=== PATIENT | female | born 1990 | race Caucasian/White ===

== ENCOUNTER → 2018-09-30 12:42 | Outpatient (CLI) | payer OTHER, SELFPAY ==
[2017-06-14 10:12] VITALS: BMI 26.0
== END ==
PROVIDERS: Family Provider Internal Medicine; PCP Internal Medicine; Referring Provider Obstetrics & Gynecology Maternal & Fetal Medicine; Visit Provider Obstetrics & Gynecology Maternal & Fetal Medicine
DX: Z36.0 Encounter for antenatal screening for chromosomal anomalies (principal); Z82.79 Family history of other congenital malformations, deformations and chromosomal abnormalities
CPT/HCPCS: 36415

== ENCOUNTER → 2018-12-16 14:02 | Outpatient (CLI) | payer OTHER, SELFPAY ==
[2018-12-16 15:47] LABS: Hematocrit 34.6 % (37-47); Hemoglobin 11.2 g/dl (12.0-15.0); Mean Corp Hgb Conc 32.4 g/gl (32-36); Mean Corpuscular Hgb 30.9 pg (27.0-32.0); Mean Corpuscular Volume 95.6 fL (81-99); Mean Platelet Vol. 10.2 fl (6.2-12.0); Platelet Count 260 K/mm3 (150-450); RBC Distribution Width CV 14.1 % (11.6-14.6); RBC Distribution Width SD 46.1 fl (35.1-43.9); Red Blood Count 3.62 M/mm3 (4.2-5.4); White Blood Count 8.9 K/mm3 (4.4-11.0)
[2018-12-16 15:52] LABS: Scan Indicated on CBC? Y/N NO
[2018-12-16 15:56] LABS: Protein, Urine (Random) 10.5 mg/dL (<11.9)
[2018-12-16 16:09] LABS: ALB/GLOB Ratio 0.8 RATIO (0.9-2.4); AST(SGOT) 14 U/L (15-37); Alanine Aminotransfer ALT/SGPT 21 U/L (13-56); Albumin, Serum 2.8 g/dL (3.2-5.0); Alkaline Phosphatase 56 U/L (45-117); Anion Gap 4 (5-15); BUN 10 mg/dL (7-18); Chloride 109 mmol/L (98-107); Creatinine, Serum 0.71 mg/dL (0.55-1.02); EST Glomerular Filtration Rate 102 mL/min (>60); Est Glom Filt Rate - Afr Amer 123 mL/min (>60); Globulin 3.5 g/dL (2.2-4.2); Glucose 102 mg/dL (74-106); Glucose Challenge Gest 1H 50g 102 mg/dL (70-140); Potassium 3.5 mmol/L (3.5-5.1); Protein, Total 6.3 g/dL (6.4-8.2); Sodium Level 138 mmol/L (136-145)
== END ==
PROVIDERS: Family Provider Internal Medicine; PCP Internal Medicine
DX: O30.033 Twin pregnancy, monochorionic/diamniotic, third trimester (principal)
CPT/HCPCS: 36415; 80053; 82570; 82950; 84156; 85027

== ENCOUNTER → 2019-02-11 | Outpatient (CLI) | payer OTHER, SELFPAY ==
[2017-06-14 10:12] VITALS: BMI 26.0
[2019-02-11 14:14] LABS: Hematocrit 31.7 % (37-47); Hemoglobin 10.4 g/dl (12.0-15.0); Mean Corp Hgb Conc 32.8 g/gl (32-36); Mean Corpuscular Hgb 29.2 pg (27.0-32.0); Mean Platelet Vol. 9.8 fl (6.2-12.0); Platelet Count 241 K/mm3 (150-450); RBC Distribution Width CV 13.6 % (11.6-14.6); RBC Distribution Width SD 44.3 fl (35.1-43.9); Red Blood Count 3.56 M/mm3 (4.2-5.4); White Blood Count 8.4 K/mm3 (4.4-11.0)
[2019-02-11 14:15] LABS: Scan Indicated on CBC? Y/N NO
[2019-02-11 14:25] LABS: Protein, Urine (Random) 13.5 mg/dL (<11.9)
[2019-02-11 14:52] LABS: ALB/GLOB Ratio 0.7 RATIO (0.9-2.4); AST(SGOT) 25 U/L (15-37); Alanine Aminotransfer ALT/SGPT 42 U/L (13-56); Albumin, Serum 2.6 g/dL (3.2-5.0); Alkaline Phosphatase 104 U/L (45-117); Anion Gap 9 (5-15); BUN 9 mg/dL (7-18); BUN/Creat Ratio 13.7 RATIO (10-20); Calcium,Total 8.4 mg/dL (8.5-10.1); Chloride 106 mmol/L (98-107); Creatinine, Serum 0.66 mg/dL (0.55-1.02); EST Glomerular Filtration Rate 112 mL/min (>60); Est Glom Filt Rate - Afr Amer 135 mL/min (>60); Globulin 3.8 g/dL (2.2-4.2); Glucose 107 mg/dL (74-106); Potassium 3.7 mmol/L (3.5-5.1); Protein, Total 6.4 g/dL (6.4-8.2); Sodium Level 141 mmol/L (136-145)
== END | disposition home or self-care (01) ==
LOC: LAB 13:53
PROVIDERS: Family Provider Internal Medicine; PCP Internal Medicine
DX: O26.893 Other specified pregnancy related conditions, third trimester (principal); R12 Heartburn; Z3A.00 Weeks of gestation of pregnancy not specified
CPT/HCPCS: 36415; 80053; 82570; 84156; 85027

== ENCOUNTER 2019-02-14 16:15 | Outpatient (CLI) | payer OTHER, SELFPAY ==
[2017-06-14 10:12] VITALS: BMI 26.0
[2019-02-14 16:38] VITALS: BMI 28.7
[2019-02-14 17:45] LABS: Hematocrit 30.6 % (37-47); Mean Corp Hgb Conc 32.7 g/gl (32-36); Mean Corpuscular Hgb 28.7 pg (27.0-32.0); Mean Corpuscular Volume 87.9 fL (81-99); Mean Platelet Vol. 10.5 fl (6.2-12.0); Platelet Count 264 K/mm3 (150-450); RBC Distribution Width CV 13.7 % (11.6-14.6); RBC Distribution Width SD 43.7 fl (35.1-43.9); Red Blood Count 3.48 M/mm3 (4.2-5.4); White Blood Count 7.7 K/mm3 (4.4-11.0)
[2019-02-14 17:50] LABS: Protein, Urine (Random) 10.9 mg/dL (<11.9); Protein:Creat Ratio 214 mg/g CRE (0-200); Prothrombin Time (Protime)PT. 12.7 SECONDS (11.7-14.9)
[2019-02-14 17:51] LABS: Partial Thromboplast Time 26.7 Seconds (24.1-36.2)
[2019-02-14 17:53] LABS: Scan Indicated on CBC? Y/N NO
--- NOTE | 2019-02-14 17:58 | OB.TRI.NOTE ---
History of Present Illness Date of Service: 02/14/19 Was patient seen by the physician?: Yes Reason For Visit: R/O PREECLAMPSIA Date of Service: 02/14/19 Final RICK: 04/02/19 Gestational age: 33 Weeks and 2 Days History of Present Illness: 28-year-old 2 para 1 female at 33-2/7 weeks with dichorionic diamniotic twin gestation. She has been followed by maternal- medicine in [place]. The twins have been noted to be vertex vertex and AGA x2. She presents today after contacting their office today complaining of some mild nausea. She also felt like 1 of her legs might be swollen more than another. She denies any epigastric pain or visual disturbances. She has no significant headache. Had good movement, no vaginal bleeding or leaking of fluid. She has no fevers or chills. Allergies sertraline [From Zoloft] Allergy (Verified 06/14/17 11:28) Hives prednisone Adverse Reaction (Verified 06/14/17 11:28) Other Laboratory Studies: Laboratory Tests 02/14/19 02/14/19 02/14/19 Range/Units 17:10 17:10 17:10 WBC 7.7 (4.4-11.0) K/mm3 RBC 3.48 L (4.2-5.4) M/mm3 Hgb 10.0 L (12.0-15.0) g/dl Hct 30.6 L (37-47) % MCV 87.9 (81-99) fL MCH 28.7 (27.0-32.0) pg MCHC 32.7 (32-36) g/gl RDW 13.7 (11.6-14.6) % RDW Differential 43.7 (35.1-43.9) fl Plt Count 264 (150-450) K/mm3 MPV 10.5 (6.2-12.0) fl PT 12.7 (11.7-14.9) SECONDS INR 1.0 APTT 26.7 (24.1-36.2) Seconds U Random Total Protein 10.9 (<11.9) mg/dL Urine Creatinine 50.90 (NO RANGE EST.) mg/dL Protein/Creatinin Ratio 214 H (0-200) mg/g CRE Review of Systems Constitutional: Denies: Chills, Fever Cardiovascular: Denies: Chest Pain, Light Headedness Respiratory: Denies: Cough, Shortness of Breath Gastrointestinal: Reports: Nausea. Denies: Abdominal Pain, Diarrhea, Vomiting Genitourinary: Denies: Dysuria Physical Exam General: Alert, Cooperative, No apparent distress Lungs: Normal air movement Abdomen: Soft, Non Tender, Non-Distended, Gravid, Appropriate for Gestational Age Extremities:: Other - Trace edema, symmetrical, normal distal pulses. No erythema. Negative Homans sign. Neurological: Cranial nerves II-XII grossly intact, Deep Tendon Reflexes 2+/4 and Symmetrical, Neuro grossly intact. Negative for: Clonus NST - FHR Rate Baby A Baseline: 140 Variability:: Moderate Accelerations:: 15 x 15 Decelerations:: None NST Reactive:: Yes FHR Category:: Category I Uterine Activity:: no regular ctxs - FHR Rate Baby B Baseline: 140 Variability:: Moderate Accelerations:: 15 x 15 Decelerations:: None NST Reactive:: Yes, Appropriate for gestational age FHR Category:: Category I Impression/Plan 28-year-old 2 para 1 at 33-2/7 weeks gestation with complaint of nausea. Blood pressures are normal upon serial reevaluation. She has no signs or symptoms of preeclampsia. Her labs revealed mild anemia with a hemoglobin of 10.0 and hematocrit of 30.6. Remainder of labs are unremarkable. Patient will be discharged home with routine instructions. She is to follow-up in the office as scheduled on Sunday. She is to return or call if any symptoms of severe preeclampsia. Patient is comfortable with this plan. In addition, patient and her had some questions about TOLAC versus repeat c/s. Risk benefits and alternatives to both of these were discussed. In addition, we discussed that if she were to enter spontaneous labor have a favorable cervix, clinically this would be a different situation than attempting induction on an unfavorable cervix. Their questions were answered to the best of my ability and they were comfortable with our discussion. They will discuss this further with their attendings at their next appointments.
[2019-02-14 18:03] LABS: AST(SGOT) 21 U/L (15-37); Alanine Aminotransfer ALT/SGPT 35 U/L (13-56); Creatinine, Serum 0.68 mg/dL (0.55-1.02); EST Glomerular Filtration Rate 108 mL/min (>60); Est Glom Filt Rate - Afr Amer 131 mL/min (>60); Estimated Creatinine Clearance 108.85 ml/min; Uric Acid 4.8 mg/dL (2.6-6.0)
== END 2019-02-14 18:15 | disposition home or self-care (01) ==
LOC: WPOUT 16:34 → WP 16:35
PROVIDERS: Family Provider Internal Medicine; PCP Internal Medicine; Referring Provider Obstetrics & Gynecology; Visit Provider Obstetrics & Gynecology
DX: O26.893 Other specified pregnancy related conditions, third trimester (principal); R11.0 Nausea; O99.013 Anemia complicating pregnancy, third trimester; D64.9 Anemia, unspecified; O30.043 Twin pregnancy, dichorionic/diamniotic, third trimester; Z3A.33 33 weeks gestation of pregnancy
CPT/HCPCS: 36415; 59025; 59050; 82565; 82570; 84156; 84450; 84460; 84550; 85027; 85610; 85730; 99218; G0378

== ENCOUNTER → 2019-02-17 | Outpatient (CLI) | payer OTHER, SELFPAY ==
[2019-02-14 16:38] VITALS: BMI 28.7
[2019-02-17 14:53] LABS: Hematocrit 30.3 % (37-47); Hemoglobin 9.8 g/dl (12.0-15.0); Mean Corp Hgb Conc 32.3 g/gl (32-36); Mean Corpuscular Hgb 28.7 pg (27.0-32.0); Mean Corpuscular Volume 88.6 fL (81-99); Mean Platelet Vol. 10.8 fl (6.2-12.0); Platelet Count 261 K/mm3 (150-450); RBC Distribution Width CV 13.8 % (11.6-14.6); RBC Distribution Width SD 44.8 fl (35.1-43.9); Red Blood Count 3.42 M/mm3 (4.2-5.4); White Blood Count 8.2 K/mm3 (4.4-11.0)
[2019-02-17 14:54] LABS: Scan Indicated on CBC? Y/N NO
[2019-02-17 16:15] LABS: ALB/GLOB Ratio 0.6 RATIO (0.9-2.4); AST(SGOT) 21 U/L (15-37); Alanine Aminotransfer ALT/SGPT 30 U/L (13-56); Albumin, Serum 2.4 g/dL (3.2-5.0); Alkaline Phosphatase 103 U/L (45-117); Anion Gap 9 (5-15); BUN 9 mg/dL (7-18); BUN/Creat Ratio 12.3 RATIO (10-20); Calcium,Total 8.2 mg/dL (8.5-10.1); Chloride 111 mmol/L (98-107); Creatinine, Serum 0.73 mg/dL (0.55-1.02); EST Glomerular Filtration Rate 99 mL/min (>60); Est Glom Filt Rate - Afr Amer 120 mL/min (>60); Globulin 3.9 g/dL (2.2-4.2); Glucose 91 mg/dL (74-106); LDH 203 U/L (84-246); Potassium 3.8 mmol/L (3.5-5.1); Protein, Total 6.3 g/dL (6.4-8.2); Sodium Level 142 mmol/L (136-145); Uric Acid 4.6 mg/dL (2.6-6.0)
== END | disposition home or self-care (01) ==
LOC: LAB 13:44
PROVIDERS: Family Provider Internal Medicine; PCP Internal Medicine; Referring Provider Obstetrics & Gynecology Maternal & Fetal Medicine; Visit Provider Obstetrics & Gynecology Maternal & Fetal Medicine
DX: O12.13 Gestational proteinuria, third trimester (principal); Z3A.00 Weeks of gestation of pregnancy not specified
CPT/HCPCS: 36415; 80053; 83615; 84550; 85027

== ENCOUNTER → 2019-02-18 | Outpatient (CLI) | payer OTHER, SELFPAY ==
[2019-02-14 16:38] VITALS: BMI 28.7
[2019-02-18 16:29] LABS: 24 Hour Urine Protein 322.2 mg/24HR (<150 MG/24HR); 24HR. UA Prot. Total Volume 1800 mL; Creat.Clear Total Volume 1800 mL; Creatinine Clearance 145 ml/min (100-200); Creatinine Serum Creat 0.7 mg/dL (0.6-1.0); Creatinine Urine 84.7 mg/dL (NO RANGE EST.); EST Glomerular Filtration Rate 99 mL/min (>60); Est Glom Filt Rate - Afr Amer 120 mL/min (>60); Urine Protein (24 Hour) 17.9 mg/dL (<11.9)
== END | disposition home or self-care (01) ==
PROVIDERS: Family Provider Internal Medicine; PCP Internal Medicine; Referring Provider Obstetrics & Gynecology Maternal & Fetal Medicine; Visit Provider Obstetrics & Gynecology Maternal & Fetal Medicine
DX: O12.13 Gestational proteinuria, third trimester (principal); Z3A.00 Weeks of gestation of pregnancy not specified
CPT/HCPCS: 81050; 82575; 84156

== ENCOUNTER 2021-07-28 10:01 | Outpatient (RCR) | payer OTHER, SELFPAY ==
[2021-07-07 12:43] LABS: hCG Titer Quant., Serum 15 mIU/mL (1-3)
[2021-07-14 12:24] LABS: hCG Titer Quant., Serum 6 mIU/mL (1-3)
[2021-07-21 10:31] LABS: hCG Titer Quant., Serum 3 mIU/mL (1-3)
[2021-07-28 10:58] LABS: hCG Titer Quant., Serum 1 mIU/mL (1-3)
== END 2021-07-31 05:23 | disposition home or self-care (01) ==
LOC: LAB 10:01
PROVIDERS: PCP Internal Medicine; Visit Provider Obstetrics & Gynecology Reproductive Endocrinology
DX: O02.1 Missed abortion (principal); Z3A.00 Weeks of gestation of pregnancy not specified
CPT/HCPCS: 36415; 84702

== ENCOUNTER 2021-08-24 09:16 | Outpatient (RCR) | payer OTHER, SELFPAY ==
[2021-08-17 16:58] LABS: hCG Titer Quant., Serum < 1 mIU/mL (1-3)
[2021-08-24 11:20] LABS: hCG Titer Quant., Serum < 1 mIU/mL (1-3)
== END 2021-08-30 18:00 | disposition home or self-care (01) ==
LOC: LAB 09:16
PROVIDERS: PCP Internal Medicine; Visit Provider Obstetrics & Gynecology Reproductive Endocrinology
DX: O02.1 Missed abortion (principal); Z3A.00 Weeks of gestation of pregnancy not specified
CPT/HCPCS: 36415; 84702

== ENCOUNTER 2021-08-31 09:38 | Outpatient (RCR) | payer OTHER, SELFPAY ==
[2021-08-31 11:10] LABS: hCG Titer Quant., Serum < 1 mIU/mL (1-3)
== END 2021-10-01 18:00 | disposition home or self-care (01) ==
LOC: LAB 09:38
PROVIDERS: PCP Internal Medicine; Referring Provider Obstetrics & Gynecology Reproductive Endocrinology; Visit Provider Obstetrics & Gynecology Reproductive Endocrinology
DX: O02.1 Missed abortion (principal); Z3A.00 Weeks of gestation of pregnancy not specified
CPT/HCPCS: 36415; 84702

== ENCOUNTER 2021-10-04 10:09 | Outpatient (RCR) | payer OTHER, SELFPAY ==
[2021-10-04 11:31] LABS: Absolute Lymphocyte Count 1.29 X10^3/uL (0.83-4.51); Absolute Neutrophil Count 2.1 X10^3/uL (2.0-7.7); Basophil# 0.03 X10^3/uL; Basophil% 0.7 % (0-1); Eosinophil# 0.16 X10^3/uL; Eosinophils% 3.9 % (0-5); Hematocrit 36.9 % (37-47); Hemoglobin 11.8 g/dL (12.0-15.0); Lymphocyte # 1.29 X10^3/ul (0.83-4.51); Lymphocyte % 31.5 % (19-41); Mean Corpuscular Hgb 29.2 pg (27.0-32.0); Mean Corpuscular Volume 91.3 fL (81-99); Mean Platelet Vol. 9.7 fl (6.2-12.0); Monocyte# 0.56 X10^3/uL; Monocyte% 13.7 % (0-10); NRBC Flagged by Analyzer 0 % (0-5); Neutrophil # 2.05 X10^3/uL (2.7-7.7); Platelet Count 317 K/mm3 (150-450); RBC Distribution Width CV 13.3 % (11.6-14.6); RBC Distribution Width SD 44.8 fl (35.1-43.9); Red Blood Count 4.04 M/mm3 (4.2-5.4); White Blood Count 4.1 K/mm3 (4.4-11.0)
[2021-10-04 11:42] LABS: Erythrocyte Sedimentation Rate 6 mm/hr (0-30)
[2021-10-04 11:53] LABS: hCG Titer Quant., Serum < 1 mIU/mL (1-3)
[2021-10-04 11:56] LABS: Vitamin B12 881 pg/mL (211-911); Vitamin D,25 Hydroxy 98.7 ng/mL
[2021-10-04 12:01] LABS: AST(SGOT) 16 U/L (15-37); Alanine Aminotransfer ALT/SGPT 28 U/L (13-56); Albumin, Serum 3.5 g/dL (3.2-5.0); Alkaline Phosphatase 64 U/L (45-117); Amylase 49 U/L (25-115); Anion Gap 8 (5-15); BUN 12 mg/dL (7-18); BUN/Creat Ratio 14.6 RATIO (10-20); Calcium,Total 8.9 mg/dL (8.5-10.1); Chloride 105 mmol/L (98-107); Creatinine, Serum 0.82 mg/dL (0.55-1.02); EST Glomerular Filtration Rate 85 mL/min (>60); Est Glom Filt Rate - Afr Amer 103 mL/min (>60); Globulin 3.5 g/dL (2.2-4.2); Glucose 83 mg/dL (74-106); Lipase 140 U/L (73-393); Potassium 4.2 mmol/L (3.5-5.1); Sodium Level 141 mmol/L (136-145); Thyroid Stim Hormone (TSH) 1.61 uIU/mL (0.358-3.74)
== END 2021-10-31 18:00 | disposition home or self-care (01) ==
LOC: LAB 10:09
PROVIDERS: PCP Internal Medicine; Referring Provider Obstetrics & Gynecology Reproductive Endocrinology; Visit Provider Obstetrics & Gynecology Reproductive Endocrinology
DX: R10.12 Left upper quadrant pain (principal); R53.83 Other fatigue
CPT/HCPCS: 36415; 80053; 82150; 82306; 82607; 83690; 84443; 84702; 85025; 85652

== ENCOUNTER 2021-10-20 09:05 | Outpatient (CLI) | payer OTHER, SELFPAY ==
--- NOTE | 2021-10-20 09:07 | US_ITS ---
STUDY: ABDOMINAL ULTRASOUND - left UPPER QUADRANT REASON FOR VISIT: Female, 31 years old LUQ PAIN TECHNIQUE: Ultrasound evaluation of the right upper quadrant was performed with real-time and static york-scale imaging. TECHNICAL QUALITY: Adequate. COMPARISON: None. FINDINGS: Spleen: The spleen measures 11.6 cm x 4.9 cm x 4.4 cm. It is unremarkable. Left Kidney: Normal size of the left kidney. The left kidney measures 10.8 cm x 4.6 x 6.4 cm cm. Normal renal cortex. The left cortex measures 2.1 cm. There is no demonstrated renal mass or cyst. There is no left hydronephrosis. US/Abdomen Limited IMPRESSION: Normal left upper quadrant ultrasound examination. Electronically Signed: Willian Draper MD at 9:53 EST , Service support ,
== END 2021-10-20 23:59 | disposition short-term general hospital (02) ==
LOC: US 09:05
PROVIDERS: PCP Internal Medicine; Referring Provider Internal Medicine; Visit Provider Internal Medicine
DX: R10.12 Left upper quadrant pain (principal)
CPT/HCPCS: 76705

== ENCOUNTER 2021-11-01 13:49 | Outpatient (RCR) | payer OTHER, SELFPAY ==
[2021-11-01 15:14] LABS: Erythrocyte Sedimentation Rate 8 mm/hr (0-30)
[2021-11-01 15:15] LABS: Absolute Lymphocyte Count 0.98 X10^3/uL (0.83-4.51); Absolute Neutrophil Count 5.3 X10^3/uL (2.0-7.7); Basophil# 0.02 X10^3/uL; Basophil% 0.3 % (0-1); Eosinophil# 0.09 X10^3/uL; Eosinophils% 1.3 % (0-5); Hematocrit 37.1 % (37-47); Hemoglobin 12.3 g/dL (12.0-15.0); Lymphocyte # 0.98 X10^3/ul (0.83-4.51); Lymphocyte % 14.1 % (19-41); Mean Corp Hgb Conc 33.2 g/dL (32-36); Mean Corpuscular Hgb 30.4 pg (27.0-32.0); Mean Corpuscular Volume 91.6 fL (81-99); Mean Platelet Vol. 9.5 fl (6.2-12.0); Monocyte# 0.53 X10^3/uL; Monocyte% 7.6 % (0-10); NRBC Flagged by Analyzer 0 % (0-5); Neutrophil # 5.33 X10^3/uL (2.7-7.7); Neutrophil % 76.4 % (47-70); Platelet Count 329 K/mm3 (150-450); RBC Distribution Width CV 13.2 % (11.6-14.6); RBC Distribution Width SD 45.1 fl (35.1-43.9); Red Blood Count 4.05 M/mm3 (4.2-5.4)
[2021-11-01 15:41] LABS: Vitamin B12 684 pg/mL (211-911); Vitamin D,25 Hydroxy 88.8 ng/mL
[2021-11-01 15:56] LABS: hCG Titer Quant., Serum < 1 mIU/mL (1-3)
[2021-11-01 15:58] LABS: ALB/GLOB Ratio 1.1 RATIO (0.9-2.4); AST(SGOT) 14 U/L (15-37); Alanine Aminotransfer ALT/SGPT 25 U/L (13-56); Alkaline Phosphatase 60 U/L (45-117); Amylase 60 U/L (25-115); Anion Gap 4 (5-15); BUN 19 mg/dL (7-18); BUN/Creat Ratio 19.6 RATIO (10-20); Calcium,Total 9.1 mg/dL (8.5-10.1); Chloride 108 mmol/L (98-107); Creatinine, Serum 0.97 mg/dL (0.55-1.02); EST Glomerular Filtration Rate 70 mL/min (>60); Est Glom Filt Rate - Afr Amer 85 mL/min (>60); Globulin 3.6 g/dL (2.2-4.2); Glucose 60 mg/dL (74-106); Lipase 152 U/L (73-393); Protein, Total 7.6 g/dL (6.4-8.2); Sodium Level 140 mmol/L (136-145); Thyroid Stim Hormone (TSH) 1.43 uIU/mL (0.358-3.74)
== END 2021-11-01 23:59 | disposition home or self-care (01) ==
LOC: LAB 13:49
PROVIDERS: PCP Internal Medicine; Referring Provider Obstetrics & Gynecology Reproductive Endocrinology; Visit Provider Obstetrics & Gynecology Reproductive Endocrinology
DX: O02.1 Missed abortion (principal)
CPT/HCPCS: 36415; 80053; 82150; 82306; 82607; 83690; 84443; 84702; 85025; 85652

== ENCOUNTER → 2022-07-14 | Outpatient (CLI) | payer OTHER, SELFPAY ==
[2022-07-14 15:53] LABS: D-Dimer Quantitative (DVT/PE) 0.35 FEU/ug/m (0.27-0.49)
== END | disposition home or self-care (01) ==
LOC: LABSPEC 15:22
PROVIDERS: PCP Internal Medicine; Visit Provider Internal Medicine
DX: R06.02 Shortness of breath (principal)
CPT/HCPCS: 85379

== ENCOUNTER → 2022-07-28 | Outpatient (CLI) | payer OTHER, SELFPAY ==
--- NOTE | 2022-07-28 08:51 | ECHOD_ITS ---
Reason For Study: Chest Pain Procedure This was a 2D Doppler, Color Flow transthoracic echocardiogram. Exam performed in department. Left Ventricle Normal LV size. Apical false tendon noted. Mid cavitary false tendon. Left ventricular systolic function is normal. The estimated ejection fraction is 55 %. No evidence for diastolic dysfunction. No regional wall motion abnormalities noted. Right Ventricle Normal RV size. Normal systolic function. Atria Normal left atrium. Normal right atrium. No doppler evidence for ASD. Mitral Valve There is no mitral annular calcification. Equivocal mitral valve prolapse. Trivial mitral valve insufficiency. Tricuspid Valve Normal tricuspid valve. Trivial tricuspid valve insufficiency. Right ventricular systolic pressure estimated to be 22 mmHg. Aortic Valve Trisinus/trileaflet aortic valve. Normal aortic valve. Pulmonic Valve The pulmonic valve is not well visualized. Great Vessels Normal sized aortic root. Pericardium/Pleural No pericardial effusion. MMode/2D Measurements & Calculations LVIDd: 5.0 cm IVSd: 0.71 cm Ao root diam: 2.4 cm LVIDs: 3.6 cm LVPWd: 0.73 cm RVDd: 3.0 cm FS: 29.5 % LAV(MOD-bp): 33.7 ml LVAd ap4: 28.0 cm2 SV(MOD-sp4): 44.4 ml LAV(MOD-bp) Indexed: 19.8 ml/m2 LVLd ap4: 8.0 cm LAV(MOD-sp2): 28.7 ml EDV(MOD-sp4): 80.3 ml LAV(MOD-sp4): 34.2 ml EDV(sp4-el): 83.2 ml LVAs ap4: 17.0 cm2 LVLs ap4: 6.9 cm ESV(MOD-sp4): 35.9 ml ESV(sp4-el): 35.7 ml EF(MOD-sp4): 55.3 % EF(sp4-el): 57.0 % SV(sp4-el): 47.5 ml LA A4 area: 14.5 cm2 LA dimension(2D): 3.2 cm RA A4 area: 11.4 cm2 Doppler Measurements & Calculations MV E max ayo: 81.2 cm/sec Lat Peak E' Ayo: 15.8 cm/sec Med Peak E' Ayo: 11.5 cm/sec MV A max ayo: 58.5 cm/sec E/E' lat: 5.1 E/E' med: 7.0 MV E/A: 1.4 Ao V2 max: 119.4 cm/sec LV V1 max: 103.6 cm/sec PA V2 max: 83.7 cm/sec Ao max P.7 mmHg LV V1 max P.3 mmHg Ao V2 mean: 85.8 cm/sec Ao mean P.2 mmHg Ao V2 VTI: 23.4 cm TR max ayo: 217.2 cm/sec TR max P.9 mmHg ECHO/Echo Complete Interpretation Summary Left ventricular systolic function is normal. The estimated ejection fraction is 55 %. Apical false tendon noted. Mid cavitary false tendon. Equivocal mitral valve prolapse. Trivial mitral valve insufficiency. Trivial tricuspid valve insufficiency. Right ventricular systolic pressure estimated to be 22 mmHg. No evidence for diastolic dysfunction. Ordering Physician: Nery Valiente Referring Physician: Nery Valiente Performed By: Yady Fountain, RDCS, RVT
== END | disposition home or self-care (01) ==
LOC: CVS 08:49
PROVIDERS: PCP Internal Medicine; Referring Provider Internal Medicine; Visit Provider Internal Medicine
DX: R07.9 Chest pain, unspecified (principal)
CPT/HCPCS: 93306

== ENCOUNTER → 2023-02-09 | Outpatient (CLI) | payer OTHER, SELFPAY ==
[2023-02-09 17:43] LABS: T4 Free Direct 1.03 ng/dL (0.76-1.46); Thyroid Stim Hormone (TSH) 1.55 uIU/mL (0.358-3.74)
== END | disposition home or self-care (01) ==
LOC: LAB 16:21
PROVIDERS: PCP Internal Medicine; Referring Provider Obstetrics & Gynecology Reproductive Endocrinology; Visit Provider Obstetrics & Gynecology Reproductive Endocrinology
DX: E03.9 Hypothyroidism, unspecified (principal)
CPT/HCPCS: 36415; 84439; 84443

== ENCOUNTER → 2023-03-01 | Outpatient (CLI) | payer OTHER, SELFPAY ==
--- NOTE | 2023-03-01 15:36 | MRI_ITS ---
STUDY: MRI CERVICAL SPINE WITHOUT CONTRAST REASON FOR EXAM: Female, 32 years old. Cervical radiculopathy TECHNIQUE: Standardized fat and water weighted pulse sequences were obtained in the sagittal and axial planes. COMPARISON: None FINDINGS: Normal foramen magnum and brainstem-cervical cord junction. Normal craniovertebral junction. Normal anterior atlantoaxial articulation. Normal odontoid process. Mild straightening of the C-spine curvature. Normal vertebral bodies and posterior osseous elements. C2-3: Normal endplates. Normal disc height, signal and morphology. Normal central canal and intervertebral neural foramina. C3-4: Normal endplates. Normal disc height. Minimal ventral extradural defect due to posterior bulging annulus. Normal central canal and intervertebral neural foramina. C4-5: Normal endplates. Normal disc height, signal and morphology. Normal central canal and intervertebral neural foramina. C5-6: Normal endplates. Normal disc height, signal and morphology. Normal central canal and intervertebral neural foramina. C6-7: Normal endplates. Normal disc height. Tiny ventral extradural defect is posterior bulging annulus. Normal central canal and intervertebral neural foramina. C7-T1: Normal endplates. Normal disc height, signal and morphology. Normal central canal and intervertebral neural foramina. T1-T2, T2-T3, T3-T4 and T4-T5: (Sagittal only). Normal endplates. Normal disc height, signal and morphology. Normal central canal and intervertebral neural foramina. Normal cervical cord. Normal upper thoracic spinal cord. Normal brainstem and cerebellum. Normal midline pituitary gland, midline suprasellar cistern and anterior third ventricle. Normal visualized soft tissue structures. MRI/Spine Cervical (Routine) IMPRESSION: 1. No MRI evidence of cervical extruded disc fragment, disc protrusion, spinal stenosis or nerve root displacement. 2. Normal cervical spinal cord. Electronically Signed: Vinny Sheppard MD at 12:17 EDT ,
== END | disposition home or self-care (01) ==
LOC: MRI 15:28
PROVIDERS: PCP Internal Medicine; Visit Provider Internal Medicine
DX: M54.12 Radiculopathy, cervical region (principal)
CPT/HCPCS: 72141

== ENCOUNTER → 2023-03-29 | Outpatient (CLI) | payer OTHER, SELFPAY ==
[2023-03-31 14:12] LABS: Anti-Cardiolipin Ab, IgG, Qn < 9 GPL U/mL (0-14); Anti-Cardiolipin Ab, IgM, Qn < 9 MPL U/mL (0-12); Beta-2-Glycoprotein I IgA <9 (0-25); Beta-2-Glycoprotein I IgG <9 (0-20); Beta-2-Glycoprotein I IgM <9 (0-32); Dilute Prothrombin Time (dPT) 37.3 sec (0.0-47.6); Dilute Russell Viper Venom 42.9 sec (0.0-47.0); Interpretation Comment: (.); PTT-LA 35.6 sec (0.0-43.5); Thrombin Time 15.4 sec (0.0-23.0); dPT Confirm Ratio 1.14 Ratio (0.00-1.34)
== END | disposition home or self-care (01) ==
PROVIDERS: PCP Internal Medicine; Referring Provider Obstetrics & Gynecology Reproductive Endocrinology; Visit Provider Obstetrics & Gynecology Reproductive Endocrinology
DX: Z00.00 Encounter for general adult medical examination without abnormal findings (principal); Z13.0 Encounter for screening for diseases of the blood and blood-forming organs and certain disorders involving the immune mechanism; Z86.2 Personal history of diseases of the blood and blood-forming organs and certain disorders involving the immune mechanism
CPT/HCPCS: 36415; 86146; 86147

== ENCOUNTER 2023-04-01 10:01 | Emergency (ER) | payer OTHER, SELFPAY ==
[2023-04-01 10:04] VITALS: BP 114/85; PULSE 97; RESP 14; TEMP 36.6; O2SAT 98; BMI 25.8
--- NOTE | 2023-04-01 10:56 | VDLE_ITS ---
Reason For Study: RLE pain RIGHT GSV is normal. CFV is compressible, spontaneous, phasic, competent and demonstrates normal augmentation. FV is compressible, spontaneous, phasic, competent and demonstrates normal augmentation. POP V is compressible, spontaneous, phasic, competent and demonstrates normal augmentation. T/P Trunk is compressible. PTV is compressible. RT PerV is compressible. Procedure This is a venous duplex using B-mode, color flow and spectral Doppler. Exam performed portable in ED. The exam was diagnostic. A preliminary report was called and/or faxed to the pt's RN. VL/Venous Duplex US, Unilateral Interpretation Summary Deep veins of the right lower extremity are patent and compressible segmentally . There is no evidence of right lower extremity deep vein thrombosis. The right great sapheno us vein appears patent and compressible segmentally. Ordering Physician: Pattie Aden Performed By: Riky Dinh RVT
--- NOTE | 2023-04-01 10:57 | EDS_ITS ---
HPI History of Present Illness Chief Complaint: Lower Extremity Injury Detail of Chief Complaint: Right foot pain redness and swelling Informant: patient Narrative Narrative: Patient presents to the emergency department complaint of pain and swelling in her right foot and into her right lower extremity. Patient states initially she started with what she thought may have been a bug bite between her second and third toes dorsal aspect of her foot. She had some itching to that area and she scratched at it. She subsequently developed more discomfort to her foot and thought maybe she stepped on a Lego so she went to urgent care 5 days ago where they did x-rays which were negative for any fractures and she was started on prednisone. She continues to have pain and swelling to the foot. She denies fevers or chills or sweats. She comes in for evaluation. She is on oral control. She denies recent travel or surgery. No history of PE or DVT. Patient complains of pain and swelling now kind of extending into her calf and s he had some charley horse type pain to her right calf. PFSH PFSH Home Medications bupropion HCl 100 mg tablet (Wellbutrin) 125 mg PO BID anxiety 10/25/16 [History Last Taken 02/14/19 08:00 125 mg] Prilosec 1 tab PO DAILY heartburn 06/12/17 [History Last Taken 02/14/19 08:00 1 tab] Buspar 10 mg PO TID anxiety 06/14/17 [History Last Taken 02/14/19 08:00 10 mg] aspirin 81 mg chewable tablet 81 mg PO DAILY@0800 Check with primary doctor 02/14/19 [History Last Taken 02/14/19 08:00 1 tab] magnesium 250 mg tablet 250 mg PO DAILY headaches 02/14/19 [History Last Taken 02/14/19 08:00 1 tab] vits,calcium no.78-iron fumarate-folic acid 29 mg-1 mg tablet (Prenatabs FA) 1 tab PO DAILY vitamin 02/14/19 [History Last Taken 02/14/19 08:00 1 tab] cephalexin 500 mg capsule 500 mg PO Q6 #40 CAPSULES 04/01/23 [Rx Last Taken Unknown] sulfamethoxazole 800 mg-trimethoprim 160 mg tablet 1 tab PO BID #20 TABLETS 04/01/23 [Rx Last Taken Unknown] Allergy/AdvReac Type Severity Reaction Status Date / Time sertraline [From Zoloft] Allergy Hives Verified 04/01/23 10:04 prednisone AdvReac Other Verified 04/01/23 10:04 Social History Smoking Status: Never smoker ROS ROS ED Review of Systems ROS Unobtainable: other Constitutional Constitutional ED: Reports lethargy; Denies chills, fever(s), sweats or weight loss Eyes Eyes: Denies blurry vision, change in vision or diplopia ENT ENT ED: Denies rhinorrhea or sore throat Cardiovascular Cardiovascular: Denies chest pain, orthopnea or racing heartbeat Respiratory/Chest Respiratory/Chest: Denies cough, dyspnea, dyspnea on exertion, orthopnea or sputum Gastrointestinal Gastrointestinal: Denies abdominal pain, diarrhea, nausea or vomiting Genitourinary Genitourinary ED: Denies dysuria, hematuria or urinary frequency Musculoskeletal Musculoskeletal: Reports other Details: Right foot pain and swelling ; Denies arthralgias, back pain, myalgias or neck pain Integumentary Denies abscess, Abrasions or rash Neurologic Neurologic: Denies headache(s) or weakness Psychiatric Psychiatric: Denies anxiety, depression or suicidal thoughts Endocrine Endocrinology: Denies polydipsia, polyphagia or polyuria Hematologic/Lymphatic Hematologic/Lymphatic: Denies easy bleeding, easy bruising or lymphadenopathy Allergic/Immunologic Allergic/Immunologic ED: Denies mouth swelling, tongue swelling or urticaria EXAM Physical Exam Const Vital Signs: 04/01/23 10:04 Temperature 98 F Temperature Source Temporal Pulse Rate 97 Respiratory Rate 14 Blood Pressure 114/85 H Blood Pressure Mean 94 Pulse Ox 98 Oxygen Delivery Method Room Air Positive well nourished and well developed General Appearance ED: well developed and NAD HEENT Reports TM's clear and moist mucous membranes normocephalic and atraumatic; Negative for trauma or tenderness Tympanic Membrane ED: Yes TM's clear Eyes PERRL and EOMs intact bilaterally General Eye ED: Negative for pale conjunctiva or scleral icterus Neck no lymphadenopathy, supple and no JVD General: Negative for tenderness Chest Wall inspection of chest normal and palpation of chest normal Chest: Negative for tenderness Resp normal respiratory effort and clear to auscultation bilaterally Effort and Inspection: Negative for respiratory distress or pain with movement Auscultation: Negative for rhonchi, wheezes or diminished lung sounds Cardio regular rate, regular rhythm, S1 normal heart sound, S2 normal heart sound and no murmurs Peripheral Pulses: pulses 2+ throughout GI normal to inspection, nondistended, normoactive bowel sounds, soft to palpation, non-tender, non-distended and no masses Back/Spine no CVA tenderness and no thoracic nor lumbar tenderness Extremity Extremity Narrative: Right foot-patient has a superficial healed abrasion to the dorsum of the right foot at the base of the second and third toes. She has tenderness to palpation in this area over the second and third MTP joints. There is diffuse soft tissue swelling of the foot and there is just some very subtle erythema over the dorsal aspect of the foot, and extending onto the anterior aspect of the distal third of the tibia. No discrete fluctuance or abscess palpated. Patient also with some mild tenderness over the right calf. General Extremety ED: Negative for edema General Extremity: Negative for edema Neuro oriented x3, CN's II-XII intact bilaterally, no sensory deficits noted and gait normal Sensorium / Orientation: awake, alert, oriented to person, oriented to place and oriented to time Motor Exam: strength 5/5 throughout and strength abnormal Psych mental status grossly normal Skin no rashes or lesions noted and no wounds MDM MDM MDM Narrative Medical decision making narrative: Patient presents with pain in the right foot already having x-rays. We will o btain venous Doppler to rule out DVT. Also I am concerned about the possibility of infection and cellulitis therefore I will start her on Keflex and Bactrim. Patient venous Doppler negative for DVT. This point we will cover for possibility of cellulitis. Patient will be given a prescription for Bactrim and Keflex. She is advised to follow-up with her primary care physician within next 3 to 5 days. Discharge Plan Triage Chief Complaint: Lower Extremity Injury ED Provider: Pattie Aden Dx/Rx/DC Orders Clinical Impression: Acute pain of right foot, Cellulitis of foot, right Instructions: ED Cellulitis, ED Pain, Acute, Uncertain Cause Prescriptions: New sulfamethoxazole-trimethoprim [sulfamethoxazole-trimethoprim] 800-160 mg tablet 1 tab PO BID Qty: 20 0RF cephalexin [cephalexin] 500 mg capsule 500 mg PO Q6 Qty: 40 0RF No Action bupropion HCl [Wellbutrin] 100 mg tablet 125 mg PO BID Patient Comments: by mouth Prilosec 1 tab PO DAILY Buspar 10 mg PO TID aspirin 81 MG tablet,chewable 81 mg PO DAILY@0800 magnesium 250 MG tablet 250 mg PO DAILY vit,[id number] [Prenatabs FA] 1 TABLET tablet 1 tab PO DAILY Primary Care Provider: Nery Valiente Referrals: Nery Valiente DO [Primary Care Provider] - 3-5 Days Disposition Disposition: Home, Self Care
[2023-04-01] MEDS: Cephalexin 250 MG Capsule 500 MG PO (11:43)
[2023-04-01] MEDS: Smz/Tmp Ds Tablet 1 TABLET PO (11:43)
== END 2023-04-01 12:12 | disposition home or self-care (01) ==
PROVIDERS: Emergency Provider Emergency Medicine; PCP Internal Medicine; Visit Provider Emergency Medicine
DX: L03.115 Cellulitis of right lower limb (principal); M79.671 Pain in right foot; Z79.3 Long term (current) use of hormonal contraceptives
CPT/HCPCS: 93971; 99283

== ENCOUNTER 2023-04-30 08:59 | Outpatient (CLI) | payer OTHER, SELFPAY ==
[2023-04-30 10:37] LABS: Anion Gap 3 (5-15); BUN 16 mg/dL (7-18); BUN/Creat Ratio 17.8 RATIO (10-20); Calcium,Total 8.8 mg/dL (8.5-10.1); Chloride 108 mmol/L (98-107); EST Glomerular Filtration Rate 76 mL/min (>60); Est Glom Filt Rate - Afr Amer 92 mL/min (>60); Glucose 100 mg/dL (74-106); Potassium 3.8 mmol/L (3.5-5.1); Sodium Level 139 mmol/L (136-145)
[2023-04-30 10:40] LABS: Vitamin D,25 Hydroxy 97.9 ng/mL
== END 2023-04-30 23:59 | disposition home or self-care (01) ==
PROVIDERS: PCP Internal Medicine; Referring Provider Podiatrist; Visit Provider Podiatrist
DX: E55.9 Vitamin D deficiency, unspecified (principal)
CPT/HCPCS: 36415; 80048; 82306

== ENCOUNTER → 2023-05-21 | Outpatient (CLI) | payer OTHER, SELFPAY ==
[2023-05-21 11:09] LABS: hCG Titer Quant., Serum 32 mIU/mL (1-3)
== END | disposition home or self-care (01) ==
LOC: LAB 09:36
PROVIDERS: PCP Internal Medicine; Referring Provider Obstetrics & Gynecology Reproductive Endocrinology; Visit Provider Obstetrics & Gynecology Reproductive Endocrinology
DX: Z13.29 Encounter for screening for other suspected endocrine disorder (principal)
CPT/HCPCS: 36415; 84702

== ENCOUNTER → 2023-05-29 | Outpatient (CLI) | payer OTHER, SELFPAY ==
[2023-05-29 12:03] LABS: hCG Titer Quant., Serum 1 mIU/mL (1-3)
== END | disposition home or self-care (01) ==
LOC: LAB 10:19
PROVIDERS: PCP Internal Medicine; Referring Provider Obstetrics & Gynecology Reproductive Endocrinology; Visit Provider Obstetrics & Gynecology Reproductive Endocrinology
DX: Z13.29 Encounter for screening for other suspected endocrine disorder (principal)
CPT/HCPCS: 36415; 84702

== ENCOUNTER → 2023-06-18 | Outpatient (CLI) | payer OTHER, SELFPAY ==
[2023-06-18 13:01] LABS: hCG Titer Quant., Serum 114 mIU/mL (1-3)
== END | disposition home or self-care (01) ==
PROVIDERS: PCP Internal Medicine; Visit Provider Obstetrics & Gynecology Reproductive Endocrinology
DX: Z32.00 Encounter for pregnancy test, result unknown (principal)
CPT/HCPCS: 36415; 84702

== ENCOUNTER → 2023-06-20 | Outpatient (CLI) | payer OTHER, SELFPAY ==
[2023-06-20 10:09] LABS: hCG Titer Quant., Serum 328 mIU/mL (1-3)
== END | disposition home or self-care (01) ==
LOC: LAB 09:06
PROVIDERS: PCP Internal Medicine; Referring Provider Obstetrics & Gynecology Reproductive Endocrinology; Visit Provider Obstetrics & Gynecology Reproductive Endocrinology
DX: Z32.01 Encounter for pregnancy test, result positive (principal)
CPT/HCPCS: 36415; 84702

== ENCOUNTER → 2023-06-25 | Outpatient (CLI) | payer OTHER, SELFPAY ==
[2023-06-25 11:44] LABS: hCG Titer Quant., Serum 2419 mIU/mL (1-3)
== END | disposition home or self-care (01) ==
LOC: LAB 09:17
PROVIDERS: PCP Internal Medicine; Referring Provider Obstetrics & Gynecology Reproductive Endocrinology; Visit Provider Obstetrics & Gynecology Reproductive Endocrinology
DX: Z32.01 Encounter for pregnancy test, result positive (principal)
CPT/HCPCS: 36415; 84702

== ENCOUNTER 2023-07-19 12:57 | Day surgery (SDC) | payer OTHER, SELFPAY ==
[2023-07-19 09:09] LABS: Absolute Lymphocyte Count 1.14 X10^3/uL (0.83-4.51); Absolute Neutrophil Count 2.7 X10^3/uL (2.0-7.7); Basophil# 0.03 X10^3/uL; Basophil% 0.7 % (0-1); Eosinophil# 0.15 X10^3/uL; Eosinophils% 3.4 % (0-5); Hematocrit 40.2 % (37-47); Lymphocyte # 1.14 X10^3/ul (0.83-4.51); Lymphocyte % 25.7 % (19-41); Mean Corp Hgb Conc 32.3 g/dL (32-36); Mean Corpuscular Hgb 29.5 pg (27.0-32.0); Mean Corpuscular Volume 91.2 fL (81-99); Mean Platelet Vol. 9.4 fl (6.2-12.0); Monocyte# 0.44 X10^3/uL; Monocyte% 9.9 % (0-10); NRBC Flagged by Analyzer 0 % (0-5); Neutrophil # 2.67 X10^3/uL (2.7-7.7); Neutrophil % 60.1 % (47-70); Platelet Count 321 K/mm3 (150-450); RBC Distribution Width CV 12.8 % (11.6-14.6); RBC Distribution Width SD 42.7 fl (35.1-43.9); Red Blood Count 4.41 M/mm3 (4.2-5.4); White Blood Count 4.4 K/mm3 (4.4-11.0)
[2023-07-19 09:44] LABS: Thyroid Stim Hormone (TSH) 1.05 uIU/mL (0.358-3.74)
--- NOTE | 2023-07-19 13:16 | PCM.HP.BLA ---
History and Physical [facility] [address] [place] [address] OFFICE VISIT Date of Service: 07/19/23 MR#: [id number] Acct: [id number] Name: NICOLE BURR Rep #: [id number] : 1990 Provider: Dr. Matilde Dominguez MD Age/Sex: 33/F [place] [facility]: Signed Intake Vital Signs 04/01/2310:04 07/19/2308:02 07/19/2308:04 Height 5 ft 5 in 5 ft 5 in 5 ft 5 in Weight: 150 lb 8 oz BMI 25.0 BP 112/78 Intake Visit Reasons: miscarriage preop Development Professional Required: No Is patient in pain?: No Allergies sertraline [From Zoloft] Allergy (Verified 07/19/23 08:03) Hivesprednisone Adverse Reaction (Verified 07/19/23 08:03) Other Medications bupropion HCl 100 mg tablet (Wellbutrin) 125 mg PO BID anxiety 10/25/16 [History Confirmed 07/19/23] Prilosec 1 tab PO DAILY heartburn 06/12/17 [History Confirmed 07/19/23] Buspar 10 mg PO TID anxiety 06/14/17 [History Confirmed 07/19/23] vits,calcium no.78-iron fumarate-folic acid 29 mg-1 mg tablet (Prenatabs FA) 1 tab PO DAILY vitamin 02/14/19 [History Confirmed 07/19/23] Is last menstrual period known: Yes Post menopausal: No Patient : No : No PFSH Medical History (Updated 07/19/23 @ 08:[address] Matilde Dominguez MD) Anxiety GERD (gastroesophageal reflux disease) Non-smoker Right bundle branch block (RBBB) determined by electrocardiography Surgical History (Updated 07/18/23 @ 13:38 by Dixie Bland) History of History of D&C History of laparoscopy Social History Smoking Status: Never smoker HPI miscarriage preop Details: NICOLE BURR is a 33 year old who presents for early miscarriage, spontaneous this time, but scanned and no heart tones were seen. she sees infertility specialists and they are who diagnosed the miscarriage. they are seeing Dr [facility] in [place]. she has had some bleeding and cramping, she has had multiple miscarriages and preivous workup has been WNL. she denies any fevrs or other issues at this time, she is coping appropriately. Female Reproductive History Menopausal Symptoms: No night sweats History 6 Elective abortions Hx Para 2 Spontaneous abortions 4 Hx # Term Pregnancies 1 Ectopic pregnancies Hx # Pregnancies 1 Multiple births # of living children 3 ROS Const Constitutional: Denies fatigue, night sweats, weight gain or weight loss ENT ENT: Reports system reviewed and no additional complaints, except as documented Cardio Card: Denies chest pain Resp Resp: Denies cough or dyspnea GI GI: Reports as per HPI; Denies abdominal pain, constipation, nausea or vomiting : Denies nipple discharge, urinary frequency, urinary incontinence, urinary hesitancy, urinary urgency, vaginal discharge, vaginal dryness, vaginal odor or vaginal pruritus Musc Musc: Denies arthralgias, back pain or muscle weakness Skin Skin/Breast: Denies alopecia, change in hair, dry skin, breast mass, breast pain, breast skin changes or nipple discharge Neuro Neuro: Reports system reviewed and no additional complaints, except as documented Psych Psych: Reports system reviewed and no additional complaints, except as documented Endo Endo: Denies cold intolerance, excessive sweating, heat intolerance or polydipsia Figueroa/Lymph Hematologic/Lymphatic: Denies easy bleeding, Denies easy bruising and Denies lymphadenopathy Exam Const General: cooperative, healthy appearing, comfortable and no acute distress Orientation: alert [facility] Head: normal to inspection and normocephalic Ears: hearing grossly normal bilaterally and external ears normal Nose: external nose normal and nares normal Face and sinus: normal facial exam Neck Neck: normal visual inspection and no lymphadenopathy Thyroid: thyroid normal Chest Chest palpation & inspection: normal inspection of the chest Resp Effort & Inspection: normal respiratory effort Auscultation: clear to auscultation bilaterally Cardio Rate: regular rate Rhythm: regular rhythm Heart Sounds: S1 normal and S2 normal GI Inspection: normal to inspection and non-distended Palpation: soft and no hepatosplenomegaly Musc Other: gross motor intact no deficits, full bilateral strength Skin General: no rashes or lesions noted Neuro General: patient alert, patient awake, moves all extremities and no focal motor deficits Motor: muscle tone normal throughout Extrem General: normal to inspection and no pedal edema Psych Appearance: grossly normal Mental Status: mental status grossly normal Affect: normal affect Speech and Movement: speech and movement normal Coding Level of Care Code Off vis,new,level 4 Diagnoses Missed O02.1 Assessment and Plan Assessment and Plan (1) Missed : Status: Acute Comment: proceed with suction d and c Orders: Orders Thyroid Stim Hormone (TSH) Today O03.9 - Complete or unspecified spontaneous without complication Hemoglobin A1c Today O03.9 - Complete or unspecified spontaneous without complication Beta-2 Glycoprot IgG, A, M Today N96 - Recurrent loss, O03.9 - Complete or unspecified spontaneous without complication Anticardiolipin IgA,G,M Today N96 - Recurrent loss, O03.9 - Complete or unspecified spontaneous without complication Anticardiolipin IgG, IgM Today N96 - Recurrent loss, O03.9 - Complete or unspecified spontaneous without complication Lupus Anticoagulant Comp Today N96 - Recurrent loss, O03.9 - Complete or unspecified spontaneous without complication CBC W/Diff, Automated Today O03.9 - Complete or unspecified spontaneous without complication Type & Screen Today O03.9 - Complete or unspecified spontaneous without complication Plan After discussing the patient's diagnosis and treatment plan options, patient wishes to proceed with surgical management. I have discussed with the patient the risks, benefits, and alternatives of the procedure which include but are not limited to risks of anesthesia, bleeding, infection, possible damage to bowel, bladder, or surrounding vasculature which could lead to additional surgery to evaluate any complications. Patient agrees to procedure and wishes to proceed. ACOG/uptodate references given for additional information regarding procedure. 07/19/23 0829 <Electronically signed by Matilde Dominguez MD> Date Matilde Dominguez MD Cosigner Signature: Date (if applicable) CC: ~
[2023-07-19] MEDS: Lactated Ringers 1,000 ML 15 ML IV (13:45)
[2023-07-19 13:47] VITALS: BP 103/76; PULSE 80; RESP 18; TEMP 36.6; O2SAT 100; BMI 24.7
[2023-07-19] MEDS: Doxycycline 100 MG CAPSULE PO (14:00)
--- NOTE | 2023-07-19 14:30 | POC_PTH ---
PATIENT: NICOLE BURR [place] [facility] [place][id number] AGE/SX: 33/F ROOM: RE07/19/[address]: Dr. Matilde Dominguez MD : 1990 BED: DIS: 07/19/2023 SPEC #: [id number] RECD: 07/20/23 10:04 STATUS: AWA REZabrina #: [id number] BEAR: 07/19/23 14:[address]: Matilde Dominguez DEPT: SURGICAL PATHOLOGY RECD BY: Deonna Reaves ENTERED: 07/20/23 10:04 SP TYPE: PROD CONC OTHR DR: Dr. Nery Valiente DO Tissues: Product of conception, NOS Procedures: Surgery Specimen Level IV HEADER OPERATION: Suction dilation and curettage PRE-OP DIAGNOSIS: Missed TISSUE SUBMITTED: Products of conception MICROSCOPIC DIAGNOSIS Endometrium, curettage: Chorionic villi, decidualized stroma and trophoblastic cells (products of conception). AM:lucita 07/23/2023 MICROSCOPIC DESCRIPTION Slides are reviewed. GROSS DESCRIPTION Received without fixative is one container labeled with the patient's name and designated products of conception. The specimen consists of multiple irregular fragments of pink soft tissue that in aggregate measure 6.0 x 7.0 x 1.0 cm. No tissue is identified. A portion of tissue is submitted for Anora study. Concrete Carpenter tissue is submitted in two cassettes. / SJ:lucita 07/20/2023 TC:5 CPT: 35117 ADDENDUM ADDENDUM ADDENDUM ADDENDUM ADDENDUM ADDENDUM ADDENDUM ADDENDUM ADDENDUM ADDENDUM ADDENDUM 07/30/2023 09:58 ADDENDUM 07/30/2023 09:58 ADDENDUM 07/30/2023 09:58 ADDENDUM 07/30/2023 09:58 ADDENDUM 07/30/2023 09:58 ANORA MICROARRAY CHROMOSOME ANALYSIS WITH PARENTAL SUPPORT RESULT: Abnormal female MICROARRAY RESULT: arr(12)x3 CLINICAL INTERPRETATION: Abnormal result. Trisomy 12 detected. Trisomy 12 is generally incompatible with survival. Overall, trisomy is found in approximately 45% of miscarriages. Genetic counseling is recommended to discuss the significance of this result. Referral to a local genetic counselor may be considered. Please see complete report in e-chart or EMR
[2023-07-19] MEDS: Lidocaine 1% (20 ml mdv) 20 ML Vial (14:53)
[2023-07-19] MEDS: Silver Nitrate (BKC) 1 EACH (15:05)
--- NOTE | 2023-07-19 15:11 | PCM.OPRPT ---
Problems Associated Problem List Diagnoses (1) History of recurrent miscarriages: (2) History of molar : (3) Missed : Report of Operation Pre-Operative Diagnosis: see problem list Post-Operative Diagnosis: same Surgery/Procedure Performed:: Suction dilation and curettage Description of Surgical Findings:: no FHT present, Nonviable [] weeks Surgeon: Matilde Dominguez rug cleaning supervisor: None Type of Anesthesia: Local MAC Special Medications: none Specimen's removed: POC Drains: none Estimated Blood Loss (mL): 50 Fluids Replaced: crystalloid Description of Procedure: Patient was taken to the operating room and placed under MAC local anesthesia. She was prepped and draped in the normal sterile fashion the dorsal lithotomy position. Bladder was drained of clear urine and anterior lip of the cervix was grasped and the uterus sounded to []. Cervix was progressively dilated to allow passage of a [] suction curette. Progressive passes were made removing the retained products of conception without complication. Sharp curettage confirmed complete removal of the retained products. All instruments were removed from the vagina and excellent hemostasis was noted and the patient was taken to recovery in stable condition. Grafts/Implants Used: none Complications none Admit VTE Documentation VTE Present on Admission: No VTE Mechan Device Prophylaxis: SCD's Procedures Urinary/Genital 52xxx-59xxx: 13116 Surg Trtmt missed Ab, 1TM
--- NOTE | 2023-07-19 15:12 | DCINST_ITS ---
Discharge Instructions Diet Discharge Diet: No restrictions Activity Discharge Activity: Return to Normal Activity, May Shower and May Take a Tub Bath (after 1 week) May resume sexual activity in: 1-2 weeks Weight Bearing Status: Weight bearing as tolerated Lifting Restrictions: none Dressing / Incision Call your doctor if you observe: Fever of 101 or Higher, Using more than 1 pad per hour, Shortness of breath and Uncontrolled pain Follow Up Care Please Follow Up With: Matilde Dominguez MD When: Call [phone] to schedule appointment. Test Results: Test results from this visit will be discussed in further detail at your follow- up appointment, if applicable. Discharge Plan Admission Attending Provider: Matilde Dominguez Primary Care Provider: Nery Valiente Discharge Orders/Prescriptions Prescriptions: No Action bupropion HCl [Wellbutrin] 100 mg tablet 125 mg PO BID Patient Comments: by mouth Prilosec 1 tab PO DAILY Buspar 10 mg PO TID Prenatabs FA 1 TABLET tablet 1 tab PO DAILY Referrals / Follow Up: Nery Valiente DO [Primary Care Provider] - Disposition Disposition (needs filled in before D/C Order can be placed): Home, Self Care
[2023-07-19 15:15] VITALS: BP 103/76; BP 104/60; PULSE 104; RESP 15; TEMP 36.1; O2SAT 99
[2023-07-19 15:20] VITALS: BP 103/76; BP 104/60; PULSE 89; RESP 16; O2SAT 100
[2023-07-19 15:25] VITALS: BP 103/76; BP 112/70; PULSE 91; RESP 16; O2SAT 99
[2023-07-19 15:30] VITALS: BP 103/76; BP 112/78; PULSE 88; RESP 16; TEMP 36.2; O2SAT 99
[2023-07-19 16:13] VITALS: BP 103/76
[2023-07-20 07:58] LABS: Pathology Specimen OB SEE PATHOLOGY REPORT
[2023-07-21 17:07] LABS: Anti-Cardiolipin Ab, IgA, Qn < 9 APL U/mL (0-11); Anti-Cardiolipin Ab, IgG, Qn < 9 GPL U/mL (0-14); Anti-Cardiolipin Ab, IgM, Qn < 9 MPL U/mL (0-12); Beta-2-Glycoprotein I IgA <9 (0-25); Beta-2-Glycoprotein I IgG <9 (0-20); Beta-2-Glycoprotein I IgM <9 (0-32); Dilute Prothrombin Time (dPT) 40.9 sec (0.0-47.6); Dilute Russell Viper Venom 43.3 sec (0.0-47.0); Interpretation Comment: (.); PTT-LA 42.1 sec (0.0-43.5); Thrombin Time 16.5 sec (0.0-23.0); dPT Confirm Ratio 1.08 Ratio (0.00-1.34)
== END 2023-07-19 16:17 | disposition home or self-care (01) ==
LOC: SDC 12:58 → AC 12:59
PROVIDERS: PCP Internal Medicine; Referring Provider Obstetrics & Gynecology; Visit Provider Obstetrics & Gynecology
PROC: (CPT 59820; principal; 2023-07-19 14:15)
DX: O02.1 Missed abortion (principal); O26.21 Pregnancy care for patient with recurrent pregnancy loss, first trimester
CPT/HCPCS: 59820; 01965; 36415; 83036; 84443; 85025; 86146; 86147; 86850; 86900; 86901; 88305; J7120; J2405

== ENCOUNTER → 2023-10-03 | Outpatient (CLI) | payer OTHER, SELFPAY ==
--- NOTE | 2023-10-03 15:48 | US_ITS ---
STUDY: ULTRASOUND OF THE FEMALE PELVIS - COMPLETE REASON FOR EXAM: Female, 33 years old. AUB LMP: 09/17/2023 TECHNIQUE: Transabdominal and Transvaginal TECHNICAL QUALITY: Adequate. COMPARISON: None. FINDINGS: The uterus is anteverted and is in a midline position. The uterus measures 10.6 x 6.1 x 4.5 cm. Normal uterine cervix. The endometrium measures 10 mm in thickness, and is hyperechoic. There is no demonstrated endometrial mass. 1.2 cm hypoechoic mass in the anterior body of uterus consistent with an intramural fibroid. I.U.D. - The patient does not have an I.U.D. splitting of the endometrium the fundus the uterus with intervening myometrium suggestive of bicornuate uterus. The right ovary is visualized. The right ovary measures 4.0 x 2.2 x 1.9 cm. There is no right ovarian cyst or ovarian mass. There is no visualized right adnexal mass or complex lesion. There is normal arterial and normal venous vascularity. The left ovary is visualized. The left ovary measures 4.4 x 1.9 x 2.2 cm. There is no left ovarian cyst or ovarian mass. There is no visualized left adnexal mass or complex lesion. There is normal arterial and normal venous vascularity. There is minimal fluid in the cul-de-sac. The pre void volume of the bladder was ml. The post void volume of the bladder was ml. Polycystic ovary disease: No. US/Pelvic w/ Transvaginal IMPRESSION: 1. 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 2. 1.2 cm fibroid in the anterior body the uterus but overall normal sized uterus. 3. Normal ovaries. Electronically Signed: Santosh Florence MD at 22:04 EST ,
== END | disposition home or self-care (01) ==
LOC: US 15:44
PROVIDERS: PCP Internal Medicine; Referring Provider Obstetrics & Gynecology; Visit Provider Obstetrics & Gynecology
DX: N94.6 Dysmenorrhea, unspecified (principal); N93.9 Abnormal uterine and vaginal bleeding, unspecified
CPT/HCPCS: 76830; 76856

== ENCOUNTER → 2023-12-13 | Outpatient (CLI) | payer OTHER, SELFPAY ==
[2023-12-13 10:06] LABS: hCG Titer Quant., Serum 14 mIU/mL (1-3)
== END | disposition home or self-care (01) ==
LOC: LAB 09:30
PROVIDERS: PCP Internal Medicine; Referring Provider Obstetrics & Gynecology Reproductive Endocrinology; Visit Provider Obstetrics & Gynecology Reproductive Endocrinology
DX: Z32.00 Encounter for pregnancy test, result unknown (principal)
CPT/HCPCS: 36415; 84702

== ENCOUNTER → 2023-12-15 | Outpatient (CLI) | payer OTHER, SELFPAY ==
[2023-12-15 11:19] LABS: hCG Titer Quant., Serum 5 mIU/mL (1-3)
== END | disposition home or self-care (01) ==
LOC: LAB 10:28
PROVIDERS: PCP Internal Medicine; Referring Provider Obstetrics & Gynecology Reproductive Endocrinology; Visit Provider Obstetrics & Gynecology Reproductive Endocrinology
DX: Z32.01 Encounter for pregnancy test, result positive (principal)
CPT/HCPCS: 36415; 84702

== ENCOUNTER → 2024-01-10 | Outpatient (CLI) | payer OTHER, SELFPAY ==
[2024-01-10 11:42] LABS: T4 Total, Thyroxin 6.4 ug/dL (4.8-13.9); Thyroid Stim Hormone (TSH) 1.58 uIU/mL (0.358-3.74)
[2024-01-11 17:07] LABS: Thyroglobulin Antibody < 1.0 IU/mL (0.0-0.9); Thyroid Peroxidase AB < 9 IU/mL (0-34)
== END | disposition home or self-care (01) ==
LOC: LAB 09:20
PROVIDERS: PCP Internal Medicine; Referring Provider Obstetrics & Gynecology Reproductive Endocrinology; Visit Provider Obstetrics & Gynecology Reproductive Endocrinology
DX: E03.9 Hypothyroidism, unspecified (principal)
CPT/HCPCS: 36415; 84436; 84443; 86376; 86800

== ENCOUNTER → 2024-04-11 | Outpatient (CLI) | payer OTHER, SELFPAY ==
[2024-04-11 08:03] LABS: hCG Titer Quant., Serum 125 mIU/mL (1-3)
== END | disposition home or self-care (01) ==
LOC: LAB 07:13
PROVIDERS: PCP Internal Medicine; Referring Provider Obstetrics & Gynecology Reproductive Endocrinology; Visit Provider Obstetrics & Gynecology Reproductive Endocrinology
DX: Z32.00 Encounter for pregnancy test, result unknown (principal)
CPT/HCPCS: 36415; 84702

== ENCOUNTER → 2024-04-14 | Outpatient (CLI) | payer OTHER, SELFPAY ==
[2024-04-14 08:21] LABS: hCG Titer Quant., Serum 569 mIU/mL (1-3)
== END | disposition home or self-care (01) ==
LOC: LAB 07:32
PROVIDERS: PCP Internal Medicine; Referring Provider Obstetrics & Gynecology Reproductive Endocrinology; Visit Provider Obstetrics & Gynecology Reproductive Endocrinology
DX: Z32.01 Encounter for pregnancy test, result positive (principal)
CPT/HCPCS: 36415; 84702

== ENCOUNTER → 2024-05-23 | Outpatient (CLI) | payer OTHER, SELFPAY ==
[2024-05-23 11:41] LABS: Absolute Lymphocyte Count 1.27 X10^3/uL (0.83-4.51); Absolute Neutrophil Count 4.6 X10^3/uL (2.0-7.7); Basophil# 0.04 X10^3/uL; Basophil% 0.6 % (0-1); Eosinophil# 0.16 X10^3/uL; Eosinophils% 2.4 % (0-5); Hematocrit 36.6 % (37-47); Lymphocyte # 1.27 X10^3/ul (0.83-4.51); Lymphocyte % 19.1 % (19-41); Mean Corp Hgb Conc 32.8 g/dL (32-36); Mean Corpuscular Hgb 29.8 pg (27.0-32.0); Mean Corpuscular Volume 90.8 fL (81-99); Mean Platelet Vol. 9.5 fl (6.2-12.0); Monocyte# 0.62 X10^3/uL; Monocyte% 9.3 % (0-10); NRBC Flagged by Analyzer 0 % (0-5); Neutrophil # 4.55 X10^3/uL (2.7-7.7); Neutrophil % 68.3 % (47-70); Platelet Count 287 K/mm3 (150-450); RBC Distribution Width CV 13.2 % (11.6-14.6); RBC Distribution Width SD 44.3 fl (35.1-43.9); Red Blood Count 4.03 M/mm3 (4.2-5.4); White Blood Count 6.7 K/mm3 (4.4-11.0)
[2024-05-23 12:52] LABS: HIV - WCH Non-Reactive (Nonreactive); Hepatitis B Surface Antigen Non-Reactive (Nonreactive); Hepatitis C Antibody Non-Reactive (Nonreactive); Rubella IgG Reactive (Nonreactive); Syphilis Antibodies Non-reactive
== END | disposition home or self-care (01) ==
PROVIDERS: PCP Internal Medicine; Referring Provider Obstetrics & Gynecology; Visit Provider Obstetrics & Gynecology
DX: O09.90 Supervision of high risk pregnancy, unspecified, unspecified trimester (principal); Z3A.00 Weeks of gestation of pregnancy not specified
CPT/HCPCS: 36415; 85025; 86703; 86762; 86780; 86803; 86850; 86900; 86901; 87340; 87491; 87591

== ENCOUNTER → 2024-07-07 | Outpatient (CLI) | payer OTHER, SELFPAY | END | disposition home or self-care (01) | LOC: LAB 09:06 → WOBLAB 09:47 | PROVIDERS: PCP Internal Medicine; Referring Provider Obstetrics & Gynecology; Visit Provider Obstetrics & Gynecology | DX: Z34.90 Encounter for supervision of normal pregnancy, unspecified, unspecified trimester (principal) | CPT/HCPCS: 36415 ==

== ENCOUNTER → 2024-09-09 | Outpatient (CLI) | payer OTHER, SELFPAY ==
[2024-09-09 11:11] LABS: Absolute Lymphocyte Count 0.89 X10^3/uL (0.83-4.51); Absolute Neutrophil Count 7.2 X10^3/uL (2.0-7.7); Basophil# 0.03 X10^3/uL; Basophil% 0.3 % (0-1); Eosinophil# 0.13 X10^3/uL; Eosinophils% 1.5 % (0-5); Hematocrit 35.4 % (37-47); Hemoglobin 11.8 g/dL (12.0-15.0); Lymphocyte # 0.89 X10^3/ul (0.83-4.51); Lymphocyte % 10.1 % (19-41); Mean Corp Hgb Conc 33.3 g/dL (32-36); Mean Corpuscular Hgb 30.3 pg (27.0-32.0); Mean Platelet Vol. 9.6 fl (6.2-12.0); Monocyte# 0.55 X10^3/uL; Monocyte% 6.3 % (0-10); NRBC Flagged by Analyzer 0 % (0-5); Neutrophil # 7.17 X10^3/uL (2.7-7.7); Neutrophil % 81.5 % (47-70); Platelet Count 306 K/mm3 (150-450); RBC Distribution Width CV 13.7 % (11.6-14.6); RBC Distribution Width SD 45.4 fl (35.1-43.9); Red Blood Count 3.89 M/mm3 (4.2-5.4); White Blood Count 8.8 K/mm3 (4.4-11.0)
[2024-09-09 13:15] LABS: Glucose Challenge Gest 1H 50g 105 mg/dL (70-140)
[2024-09-09 13:19] LABS: HIV - WCH Non-Reactive (Nonreactive); Syphilis Antibodies Non-reactive
== END | disposition home or self-care (01) ==
PROVIDERS: PCP Internal Medicine; Referring Provider Obstetrics & Gynecology; Visit Provider Obstetrics & Gynecology
DX: O09.90 Supervision of high risk pregnancy, unspecified, unspecified trimester (principal); Z3A.00 Weeks of gestation of pregnancy not specified
CPT/HCPCS: 36415; 82950; 85025; 86703; 86780

== ENCOUNTER → 2024-11-21 | Outpatient (CLI) | payer OTHER, SELFPAY ==
[2024-11-21 10:40] LABS: Absolute Neutrophil Count 7.4 X10^3/uL (2.0-7.7); Basophil# 0.03 X10^3/uL; Basophil% 0.3 % (0-1); Eosinophil# 0.08 X10^3/uL; Eosinophils% 0.8 % (0-5); Hematocrit 35.9 % (37-47); Hemoglobin 11.8 g/dL (12.0-15.0); Lymphocyte % 13.5 % (19-41); Mean Corp Hgb Conc 32.9 g/dL (32-36); Mean Corpuscular Hgb 30.3 pg (27.0-32.0); Mean Corpuscular Volume 92.1 fL (81-99); Monocyte# 0.77 X10^3/uL; NRBC Flagged by Analyzer 0 % (0-5); Neutrophil # 7.43 X10^3/uL (2.7-7.7); Neutrophil % 76.9 % (47-70); Platelet Count 281 K/mm3 (150-450); RBC Distribution Width CV 14.1 % (11.6-14.6); RBC Distribution Width SD 46.9 fl (35.1-43.9); White Blood Count 9.7 K/mm3 (4.4-11.0)
[2024-11-21 10:53] LABS: ALB/GLOB Ratio 0.6 RATIO (0.9-2.4); AST(SGOT) 16 U/L (15-37); Alanine Aminotransfer ALT/SGPT 14 U/L (13-56); Albumin, Serum 2.7 g/dL (3.2-5.0); Alkaline Phosphatase 91 U/L (45-117); Anion Gap 7 (5-15); BUN 10 mg/dL (7-18); BUN/Creat Ratio 14.2 RATIO (10-20); Calcium,Total 8.8 mg/dL (8.5-10.1); Chloride 105 mmol/L (98-107); EST Glomerular Filtration Rate 100 mL/min (>60); Est Glom Filt Rate - Afr Amer 121 mL/min (>60); Globulin 4.6 g/dL (2.2-4.2); Glucose 97 mg/dL (74-106); Potassium 3.8 mmol/L (3.5-5.1); Protein, Total 7.3 g/dL (6.4-8.2); Sodium Level 137 mmol/L (136-145)
[2024-11-21 10:54] LABS: Protein, Urine (Random) < 6.0 mg/dL (<11.9)
== END | disposition home or self-care (01) ==
LOC: BWCLAB 10:18
PROVIDERS: PCP Internal Medicine; Referring Provider Obstetrics & Gynecology; Visit Provider Obstetrics & Gynecology
DX: O09.93 Supervision of high risk pregnancy, unspecified, third trimester (principal); Z3A.00 Weeks of gestation of pregnancy not specified
CPT/HCPCS: 36415; 80053; 82570; 84156; 85025; 87081

== ENCOUNTER 2024-12-06 22:50 | Inpatient (IN) | payer OTHER, SELFPAY ==
[2024-12-06 21:57] VITALS: BP 143/92; PULSE 82
[2024-12-06 22:00] VITALS: RESP 16; TEMP 36.8
[2024-12-06 22:01] VITALS: BMI 29.6
[2024-12-06 22:20] VITALS: BP 137/94; PULSE 95
[2024-12-06 22:25] LABS: ROM Internal Control Test YES-OK TO RESULT pt. (Internal QC); ROM Patient Test POSITIVE (Negative)
[2024-12-06 22:26] LABS: Record Kit Lot#, ROM+ K2871
[2024-12-06] MEDS: Lactated Ringers 1,000 ML 999 ML IV (23:05)
[2024-12-06 23:15] VITALS: BP 137/92; PULSE 95; RESP 16; TEMP 36.8; O2SAT 100
[2024-12-06 23:16] LABS: Absolute Lymphocyte Count 1.37 X10^3/uL (0.83-4.51); Absolute Neutrophil Count 5.8 X10^3/uL (2.0-7.7); Basophil# 0.04 X10^3/uL; Basophil% 0.5 % (0-1); Eosinophil# 0.15 X10^3/uL; Eosinophils% 1.8 % (0-5); Hematocrit 34.1 % (37-47); Hemoglobin 11.5 g/dL (12.0-15.0); Lymphocyte # 1.37 X10^3/ul (0.83-4.51); Lymphocyte % 16.9 % (19-41); Mean Corp Hgb Conc 33.7 g/dL (32-36); Mean Corpuscular Hgb 30.1 pg (27.0-32.0); Mean Corpuscular Volume 89.3 fL (81-99); Mean Platelet Vol. 10.7 fl (6.2-12.0); Monocyte# 0.77 X10^3/uL; Monocyte% 9.5 % (0-10); NRBC Flagged by Analyzer 0 % (0-5); Neutrophil # 5.75 X10^3/uL (2.7-7.7); Neutrophil % 70.9 % (47-70); Platelet Count 304 K/mm3 (150-450); RBC Distribution Width CV 13.9 % (11.6-14.6); RBC Distribution Width SD 45.3 fl (35.1-43.9); Red Blood Count 3.82 M/mm3 (4.2-5.4); White Blood Count 8.1 K/mm3 (4.4-11.0)
[2024-12-06] MEDS: Acetaminophen 500 MG Tablet 1000 MG PO (23:39)
--- NOTE | 2024-12-06 23:39 | HP.PCM.OB_ITS ---
HPI - General General Date of Admission: 12/06/24 HPI Narrative NICOLE BURR, is a 34 F who presents with SROM no regular ctx 1-2 cm dilated 2 previous c sections. after dicsussing, decision to proceed with RLTCS. Maternal Data Information RICK Calculator Estimated Delivery Date Method Current WG Current Estimate 12/19/24 Conception 38w 1d PFSH PFSH Medical History Molar Anxiety Right bundle branch block (RBBB) determined by electrocardiography GERD (gastroesophageal reflux disease) Non-smoker Home Medications ?Medication ?Instructions ?Recorded ?Last Taken ?Type bupropion HCl 100 mg tablet 125 mg PO BID anxiety 10/0207/19/23 History (Wellbutrin) Buspar 10 mg PO TID anxiety 7 07/19/23 History vits,calcium no.78-iron 1 tab PO DAILY vitami n 02/14/19 02/14/19 08:00 History fumarate-folic acid 29 mg-1 mg 1 tab tablet (Prenatabs FA) famotidine 20 mg tablet (Pepcid) 20 mg PO DAILY #30 ta bs 07/02/24 Unknown Rx hydroxyzine pamoate 25 mg capsule 25 mg PO Q6H PRN anx iety #60 caps 11/21/24 Unknown Rx (Vistaril) Allergy/AdvReac Type Severity Reaction Status Date / Time sertraline (From Zoloft) Allergy Hives Verified 12/03/24 13:13 Family History Father Asthma Mother Thyroid disorder Surgical History History of tonsillectomy History of D&C History of laparoscopy History of Social History adopted: No household members: spouse and children number of children: 3 current occupational status: unemployed current occupation: [employer] current occupational exposures/hazards: No pets and animals: No history of recent travel: No sexually active: Yes Smoking Status: Never smoker alcohol intake: current alcohol intake frequency: a few times a month details: Not while substance use type: does not use well-balanced diet: daily or most days caffeine: Yes Type: coffee Number of servings: 1 eating out: 1-3 times/week during the past year weight has: remained stable what type of physical activity do you participate in: walking and yoga frequency: daily duration: 15-30 minutes/day jimmie/adventist: [employer] seatbelt use: always do you feel safe at home: Yes additional social history: -[facility] [employer] History 6 Elective abortions Hx Para 2 Spontaneous abortions 4 Hx # Term Pregnancies 1 Ectopic pregnancies Hx # Pregnancies 1 Multiple births # of living children 3 Past Pregnancies Del. Date Name GA/Weeks Outcome Route Bth Weight Infant Gen Labor Lgth Anesthesia Del Locatn Provider FOB 06/14/17 Marixa Carter 39 live - full term 8#0oz Female spinal [facility] 02/24/19 Jose Angel -Twin 34 live - 5#15oz Male spinal [facility] 02/24/19 Shady -Twin 34 live - 5#14oz Male spinal [facility] [place] [facility] Delivery Date: 06/14/17 Last Updated by: Betty Rodriguez Breech, scheduled c section, IVF Delivery Date: 02/24/19 Last Updated by: Betty Rodriguez c section MFM, IVF Delivery Date: 02/24/19 Last Updated by: Betty Rodriguez C section, [facility] MFM, IVF Visit Details Expected Delivery Route/Plan RLTCS with SM Plans Covid status: [] Flu vaccine: no Tdap vaccine: [] Rhogam: NA LARC form signed: yes Problem list reviewed and updated with the most current plan of care details and appropriate orders placed. Relevant counseling for the gestational age provided. Continue routine care and follow up unless otherwise noted in visit notes/problem list details OB Flowsheet Initial Weight: Not Recorded Date -?-?-?-?-?-?-?-?-?-?-?-?- EGA Weight BP Urine Prot -?-?-?-?-?-?-?-?-?-?-?-?- Glucose FHR FuHt Pres Dilation -?-?-?-?-?-?-?-?-?-?-?-?- Effaced St Visit Note 05/23/24 -?-?-?-?-?-?-?-?-?-?-?-?- 10w 0d 146 lb 122/76 Negative -?-?-?-?-?-?-?-?-?-?-?-?- Negative 150 -?-?-?-?-?-?-?-?-?-?-?-?- SM- GABRIEL RGI doin g well some anxiety 06/06/24 -?-?-?-?-?-?-?-?-?-?-?-?- 12w 0d 151 lb 4 oz 129/76 Nega tive -?-?-?-?-?-?-?-?-?-?-?-?- Negative 189 -?-?-?-?-?-?-?-?-?-?-?-?- JV- pt states is feeling well. Has daughter missing some of 3rd chromosome and is in special needs class (is 6) has twin boys with part of 16th chromosome missing that puts them at risk for AAA. The embryo of this baby was tested prior to IVF and was normal. 06/20/24 -?-?-?-?-?-?-?-?-?-?-?-?- 14w 0d 148 lb 116/73 Negative -?-?-?-?-?-?-?-?-?-?-?-?- Negative 175 -?-?-?-?-?-?-?-?-?-?-?-?- SM- no vb lof no regular ctx 07/02/24 -?-?-?-?-?-?-?-?-?-?-?-?- 15w 5d 151 lb 134/83 Negative -?-?-?-?-?-?-?-?-?-?-?-?- Negative 160 -?-?-?-?-?-?-?-?-?-?-?-?- SM- no vb lof cr maping having nausea, reflux symptomms 07/17/24 -?-?-?-?-?-?-?-?-?-?--?-?- 17w 6d 151 lb 128/78 Negative -?-?-?-?-?-?-?-?-?-?-?-?- Negative 150 -?-?-?-?-?-?-?-?-?-?-?-?- SM- no vb crampi ng nausea improved 08/15/24 -?-?-?-?-?-?-?-?-?-?-?-?- 22w 0d 154 lb 6 oz 116/81 Nega tive -?-?-?-?-?-?-?-?-?-?-?-?- Negative 155 -?-?-?-?-?-?-?-?-?-?-?-?- JV- no lof, vagi nal bleeding, or cramping. thinking of a tolac if labor happens spontaneously before 39 weeks. anatomy scan reviewed. 09/09/24 -?-?-?-?-?-?-?-?-?-?-?-?- 25w 4d 160 lb 2 oz 121/78 Nega tive -?-?-?-?-?-?-?-?-?-?-?-?- Negative 145 25 -?-?-?-?-?-?-?-?-?-?-?-?- SM- no vb lof go od fm n oregular ctx discussed ultrasound findings 10/30/24 -?-?-?-?-?-?-?-?-?-?-?-?- 32w 6d 165 lb 8 oz 119/81 Nega tive -?-?-?-?-?-?-?-?-?-?-?-?- Negative 140 32 -?-?-?-?-?-?-?-?-?-?-?-?- SM- no vb lof go od fm nroe gualr ctx recovering from flu 11/21/24 -?-?-?-?-?-?-?-?-?-?-?-?- 36w 0d 172 lb 8 oz 131/89 Nega tive -?-?-?-?-?-?-?-?-?-?-?-?- Negative 140 36 Cephalic -?-?-?-?-?-?-?-?-?-?-?-?- SM- no vb lof go od fm n oreuglar ctx increased anxiety gbs done 11/27/24 -?-?-?-?-?-?-?-?-?-?-?-?- 36w 6d 174 lb 125/81 Negative -?-?-?-?-?-?-?-?-?-?-?-?- Negative 150 -?-?-?-?-?-?-?-?-?-?-?-?- JV- nst reactive today. still has on and off dull headaches but states is not sleeping well. negative protein and neg PIH work up last week. 12/03/24 -?-?-?-?-?-?-?-?-?-?-?-?- 37w 5d 175 lb 136/81 Negative -?-?-?-?-?-?-?-?-?-?-?-?- Negative 140 -?-?-?-?-?-?-?-?-?-?-?-?- SM- no vb lof go o dfm no reuglar ctx discussed US NST FHR Rate Baby A Baseline: 130 Variability:: Moderate Accelerations:: 15 x 15 Decelerations:: None NST Reactive:: Yes FHR Category:: Category I Uterine Activity:: irregular ROS Constitutional Constitutional: Reports systems reviewed and no addt'l complaints, except as documented Eyes Eyes: Denies change in vision ENT HEENT: Reports systems reviewed and no addt'l complaints, except as documented; Denies headache(s) Cardiovascular Cardiovascular: Reports systems reviewed and no addt'l complaints, except as documented; Denies chest pain or dyspnea Respiratory/Chest Respiratory/Chest: Reports systems reviewed and no addt'l complaints, except as documented Gastrointestinal Gastrointestinal: Reports systems reviewed and no addt'l complaints, except as documented; Denies abdominal pain Genitourinary Genitourinary: Reports systems reviewed and no addt'l complaints, except as documented, contractions Details: present (irregular) and movement Details: present; Denies dysuria or genital lesions Musculoskeletal Musculoskeletal: Reports systems reviewed and no addt'l complaints, except as documented Neurologic Neurologic: Reports systems reviewed and no addt'l complaints, except as documented Endocrine Endocrinology: Reports systems reviewed and no addt'l complaints, except as documented Vital Signs Vital Signs Vital Signs: 12/06/24 21:57 12/06/24 21:57 12/06/24 22:00 Temperature Temperature Source Temporal Pulse Rate 82 Respiratory Rate Blood Pressure 143/92 H BP Systolic 143 BP Diastolic 92 12/06/24 22:00 12/06/24 22:00 12/06/24 22:20 Temperature 98.2 F Temperature Source Pulse Rate Respiratory Rate 16 Blood Pressure 137/94 H BP Systolic 137 BP Diastolic 94 12/06/24 22:20 Temperature Temperature Source Pulse Rate 95 Respiratory Rate Blood Pressure BP Systolic BP Diastolic Weight Weight: 178 lb Body Mass Index (BMI) 29.6 Physical Exam Const alert, oriented x3, no apparent distress and healthy appearing HEENT normocephalic and moist oral mucous membranes Head and Scalp: atraumatic Neck full ROM, no lymphadenopathy, supple and thyroid normal General: trachea midline Lymph Lymphatic: no lymphadenopathy noted Chest inspection of chest normal Resp normal respiratory effort Cardio regular rate GI soft to palpation and non-tender GI Narrative: gravid Inspection: gravid external exam normal Manual OB Exam: estimated gestational size appropriate, presentation cephalic, dilated, effaced and station Extremity normal to inspection General Extremity: Negative for edema Skin no rashes or lesions noted Neuro no focal motor deficits and deep tendon reflexes 2+ bilaterally Motor Exam: strength 5/5 throughout and clonus absent Psych mental status grossly normal Labs Labs Labs: Blood Type O POSITIVE Antibody Screen NEGATIVE Hct 34.1 % (37-47) L Hgb 11.5 g/dL (12.0-15.0) L Obstetrics Ultrasound Syphilis Total Ab Non-reactive Rubella IgG Antibody Reactive (Nonreactive) Hep Bs Antigen Non-Reactive (Nonreactive) Hepatitis C Antibody Non-Reactive (Nonreactive) HIV 1&2 Antibody Non-Reactive (Nonreactive) Glucose 1 Hr 50 gm 105 mg/dL (70-140) Group B Strep DNA Negative (Negative) Rhogam given: Yes Miscellaneous Test Assessment & Plan (1) History of : COMMENT: X2, RLTCS BS scheduled for 12/12 @ 7:15 with SM (2) Abnormal ultrasound: COMMENT: RESOLVED. 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 may be genetic. repeat imaging improved. skeletal dysplasia unlikely. (3) : QUALIFIERS: Weeks of gestation: 37 weeks Qualified Code(s): Z3A.37 - 37 weeks gestation of COMMENT: gbs neg, nipt LR and carrier declined. afp negative (4) Anxiety: COMMENT: related to losses, taking buspar & wellbutrin; stable (5) Supervision of high-risk : QUALIFIERS: Trimester: third trimester Qualified Code(s): O09.93 - Supervision of high risk , unspecified, third trimester COMMENT: PRR , RICK 12/18/24,[facility] Marixa Carter, Jose Angel & Shady(Identical Twins), [facility]. (6) conceived through in vitro fertilization: QUALIFIERS: Trimester: third trimester Qualified Code(s): O09.813 - Supervision of resulting from assisted reproductive technology, third trimester COMMENT: genetic testing done at [facility]-girl echo at 22 weeks/nl, growths q 4 weeks, weekly NST at 36 weeks, deliver at 39 weeks (7) History of recurrent miscarriages: (8) SROM (spontaneous rupture of membranes): PLAN: Plan plan RLTCS. declines BS now After discussing the patient's diagnosis and treatment plan options, patient wishes to proceed with surgical management. I have discussed with the patient the risks, benefits, and alternatives of the procedure which include but are not limited to risks of anesthesia, bleeding, infection, possible damage to bowel, bladder, or surrounding vasculature which could lead to additional surgery to evaluate any complications. Patient agrees to procedure and wishes to proceed. ACOG/uptodate references given for additional information regarding procedure.
[2024-12-06] MEDS: Sodium Citrate/Citric Acid 30 ML UDC PO (23:40)
[2024-12-06] MEDS: Azithromycin 500 MG in 0.9% Normal Saline (250mL Bag) 250 ML 255 MG IV (23:42)
--- NOTE | 2024-12-06 23:42 | EX.PCM.OBRPT ---
Assessment & Plan (1) SROM (spontaneous rupture of membranes): (2) History of : COMMENT: X2, RLTCS BS scheduled for 12/12 @ 7:15 with (3) Abnormal ultrasound: COMMENT: RESOLVED. 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 may be genetic. repeat imaging improved. skeletal dysplasia unlikely. (4) : QUALIFIERS: Weeks of gestation: 37 weeks Qualified Code(s): Z3A.37 - 37 weeks gestation of COMMENT: gbs neg, nipt LR and carrier declined. afp negative (5) Anxiety: COMMENT: related to losses, taking buspar & wellbutrin; stable (6) conceived through in vitro fertilization: QUALIFIERS: Trimester: third trimester Qualified Code(s): O09.813 - Supervision of resulting from assisted reproductive technology, third trimester COMMENT: genetic testing done at [facility]-girl echo at 22 weeks/nl, growths q 4 weeks, weekly NST at 36 weeks, deliver at 39 weeks (7) Supervision of high-risk : QUALIFIERS: Trimester: third trimester Qualified Code(s): O09.93 - Supervision of high risk , unspecified, third trimester COMMENT: PRR , RICK 12/18/24,[facility] Marixa Carter, Jose Angel & Shady(Identical Twins), [facility]. (8) History of recurrent miscarriages: (9) delivery delivered: COMMENT: [facility] 38 girl [facility]rend[facility] SROM Maternal Data Information RICK Calculator Estimated Delivery Date Method Current WG Current Estimate 12/19/24 Conception 38w 2d Operative Report (OB) Cecarean Details Procedure Type: low transverse Date of Procedure: 12/07/24 Procedure Start Time: 23:49 Procedure Stop Time: 00:20 Pre-Operative Diagnosis: Other Other Pre-Operative diagnosis: see a/p comments Post-Operative Diagnosis: Same as Pre-operative diagnosis Classification: Scheduled Type of Anesthesia: Spinal Special Medications: none Antibiotic Given: Ancef 2 grams IV x1 and Zithromax 500 mg/5 mL X1 Drain: Law to straight drain Estimated Blood Loss: 700 Fluids Replaced: crystalloid Findings Description of surgery: Spinal anesthesia was placed without difficulty. Law catheter was placed. The patient was placed in the dorsal supine position with leftward tilt. Patient was prepped and draped in the normal sterile fashion. Pfannenstiel skin incision was made with the scalpel and carried through to the underlying layer of fascia with the scalpel. Fascia was nicked in the midline and the incision extended laterally. The rectus bellies were dissected off superiorly and inferiorly with out complication both sharply and bluntly. The peritoneum was entered digitally. The incision was stretched and a low transverse uterine incision was made with the scalpel. The 's head was delivered atraumatically followed by the anterior and posterior shoulders without complication the rest of the infant delivered. The cord was clamped and cut and the was handed off to awaiting nurse. The placenta was delivered spontaneously immediately following and was noted to be intact and have a three-vessel cord. The uterus was exteriorized cleared of all clots and debris, and the incision was closed in a double layer closure using #1 Monocryl. additional sutures and hemoblast were used on the left side for hemostasis. The ovaries and fallopian tubes were noted to be within normal limits. The uterus was returned to the maternal abdomen and gutters were cleared of all clots and debris. The peritoneum was closed with 3-0 Monocryl in a running fashion. Gloves were changed prior to fascial closure. additional hemoblast was place don the muscle due to raw appearance. hemostasis noted. Fascia was closed with 0 PDS in a running fashion. Subcutaneous tissue was copiously irrigated and the skin was closed with 3-0 Monocryl in a subcuticular fashion. Mepilex dressing was applied without complication. Patient was taken to recovery in stable condition. Surgical findings: nl uterus tubes ovaries Presentation: Vertex Amniotic Membrane Rupture Type: Artificial Amniotic Fluid Description: Clear Specimen collected: Yes Description of specimen(s) removed: placenta and baby Cord Vessel Description: 3 Vessels Delayed Cord Clamping: Yes Shaft Tender mannequin refinisher: Yes Corporate Receptionist: Geovani Dhaliwal Tasks completed by food and nutrition services assistant: Opening & closing, Retracting and Other (assisting in delivery of the infant) Additional emergency room physician assistant?: No Complications Complications: No Admit VTE Documentation VTE Present on Admission: No VTE Mechan Device Prophylaxis: SCD's Procedures Urinary/Genital 52xxx-59xxx: 12667 Delivery [facility]
[2024-12-06] MEDS: Cefazolin 2 GM in Syringe IV (23:43)
--- NOTE | 2024-12-06 23:45 | DCINST_ITS ---
Discharge Instructions Diet Discharge Diet: No restrictions DC O2, CPAP, BIPAP needs Home O2 Discharge instructions: No Dressing / Incision Discharge Activity: May Not Drive (for 2 weeks or while taking narcotic pain medications.), May Shower and May Take a Tub Bath (in 7 days) May shower in (days): 0 May resume sexual activity in: 4-6 weeks Weight Bearing Status: Full weight bearing Lifting Restrictions: 20 pounds Dressing / Incision Call your doctor if your incision/area has: Continuous Slow Oozing, Sudden Increased Bleeding, Increased Pain/ Swelling, Increased Redness and Foul Smelling Discharge Call your doctor if you observe: Fever of 101 or Higher and Using more than 1 pad per hour (for 2 hours) Suture Line Care: Avoid Pulling/Pushing and Avoid Pinching/Bending Cleanse incision/area with: Soap & Water and Keep Dressing Clean & Dry Follow Up Care Please Follow Up With: Matilde Dominguez MD When: Call [phone] to make an appointment for an incision check in 1-2 weeks. Test Results: Test results from this visit will be discussed in further detail at your follow- up appointment, if applicable. Discharge Plan Admission Admit Date/Time: 12/06/24 22:50 Attending Provider: Matilde Dominguez Primary Care Provider: Nery Valiente Discharge Orders/Prescriptions Prescriptions: New oxycodone-acetaminophen [Percocet] 5-325 mg tablet 1 tab PO Q4H PRN (Reason: pain) 7 Days Qty: 20 0RF naproxen 500 mg tablet 500 mg PO BID PRN PRN (Reason: Pain) Qty: 30 1RF Continued famotidine [Pepcid] 20 mg tablet 20 mg PO DAILY Qty: 30 6RF hydroxyzine pamoate [Vistaril] 25 mg capsule 25 mg PO Q6H PRN (Reason: anxiety) Qty: 60 0RF bupropion HCl [Wellbutrin] 100 mg tablet 125 mg PO BID Patient Comments: by mouth Buspar 10 mg PO TID No Action Prenatabs FA 1 TABLET tablet 1 tab PO DAILY Referrals / Follow Up: Nery Valiente DO [Primary Care Provider] - Disposition Disposition (needs filled in before D/C Order can be placed): Home, Self Care
[2024-12-06 23:46] LABS: Syphilis Antibodies Nonreactive (Nonreactive)
[2024-12-06 23:59] LABS: Protein, Urine (Random) 8.5 mg/dL (0.0-12.0); Protein:Creat Ratio 79 mg/g CRE (0-200)
[2024-12-07] VITALS (17 sets, daily range): BP systolic 106–137; BP diastolic 73–94; PULSE 75–107; RESP 14–20; TEMP 36.3–36.8; O2SAT 97–100
[2024-12-07 00:23] LABS: Uric Acid 5.3 mg/dL (2.6-6.0)
[2024-12-07 00:24] LABS: AST(SGOT) 20 U/L (<=31); Alanine Aminotransfer ALT/SGPT 11 U/L (<=34); Creatinine, Serum 0.95 mg/dL (0.70-1.20); EST Glomerular Filtration Rate 79 (>60); Estimated Creatinine Clearance 85.94 ml/min (50-250)
[2024-12-07] MEDS: Oxytocin 15 Units/NS 250ml 15 UNITS/250 ML IV.SOLN 83 UNITS IV (01:30)
[2024-12-07] MEDS: Ketorolac 30 MG/ML Syringe IV ×4 (03:23→20:46)
[2024-12-07] MEDS: busPIRone 5 MG Tablet 10 MG PO ×3 (06:09→20:46)
[2024-12-07] MEDS: Acetaminophen 500 MG Tablet 1000 MG PO ×3 (06:10→17:55)
[2024-12-07] MEDS: Lactated Ringers 1,000 ML 100 ML IV (06:30)
[2024-12-07] MEDS: 0.9% Saline Lock 10 ML Syringe IV ×3 (08:55→20:47)
[2024-12-07] MEDS: Famotidine 20 MG Tablet PO (10:56)
[2024-12-07] MEDS: buPROPion (SR) 150 MG Tablet.SA PO (10:57)
[2024-12-07] MEDS: Senna/Docusate Sodium 1 Tablet PO (13:02)
[2024-12-07] MEDS: Prenatal Vits Tablet 1 TABLET PO (13:03)
[2024-12-07] MEDS: SimETHICONE 80 MG Chewable Tablet PO (13:03)
[2024-12-08] MEDS: Acetaminophen 500 MG Tablet 1000 MG PO ×2 (00:31→05:31)
[2024-12-08 01:27] VITALS: BP 123/80; PULSE 93; RESP 14; TEMP 36.4; O2SAT 96
[2024-12-08] MEDS: Naproxen 500 MG Tablet PO (05:31)
[2024-12-08 05:44] LABS: Hematocrit 29.1 % (37-47); Hemoglobin 9.6 g/dL (12.0-15.0); Mean Corpuscular Hgb 30.3 pg (27.0-32.0); Mean Corpuscular Volume 91.8 fL (81-99); Mean Platelet Vol. 10.2 fl (6.2-12.0); Platelet Count 226 K/mm3 (150-450); RBC Distribution Width CV 14.1 % (11.6-14.6); RBC Distribution Width SD 47.4 fl (35.1-43.9); Red Blood Count 3.17 M/mm3 (4.2-5.4); White Blood Count 7.9 K/mm3 (4.4-11.0)
[2024-12-08 07:42] VITALS: BP 122/88; PULSE 98; RESP 16; TEMP 36.8; O2SAT 98
--- NOTE | 2024-12-08 08:13 | PN.OBGYN_ITS ---
Subjective Subjective Patient doing well without complaints. Tolerating PO. Ambulating and voiding without difficulty. Feeding well. Denies chest pain, shortness of breath, calf pain/swelling, fevers, chills, lightheadedness. Objective Data Objective Data Vital Signs: Vital Signs Temp Pulse Resp BP Pulse Ox O2 Del Method 98.2 F 98 16 122/88 H 98 Room Air 12/08/24 07:42 12/08/24 07:42 12/08/24 07:42 12/08/24 07:42 12/08/24 07:42 12/08/24 07:42 Oxygen Delivery Method Room Air Weight: 178 lb Body Mass Index (BMI) 29.6 Intake & Output: Intake and Output for Last 24 Hours 12/06/24 12/08/24 12/08/24 23:59 00:59 23:59 Intake Total 2266.67 / 2266.67 Output Total 2049 / 2049 Balance 216.67 / 216.67 Lab / Micro Data Attestation: I reviewed the patient's lab results. 12/08/24 05:35 12/06/24 23:05 Labs: Laboratory Results - last 24 hr 12/08/24 05:35: WBC 7.9, RBC 3.17 L, Hgb 9.6 L, Hct 29.1 L, MCV 91.8, MCH 30.3, MCHC 33.0, RDW Std Deviation 47.4 H, RDW Coeff of Chelle 14.1, Plt Count 226, MPV 10.2 Micro: Microbiology 12/06/24 22:05 Urine, Clean Catch Chlamydia/Neisseria (PCR) - Final ROS Constitutional Constitutional: Reports systems reviewed and no addt'l complaints, except as documented; Denies anorexia or headache(s) Cardiovascular Cardiovascular: Reports systems reviewed and no addt'l complaints, except as documented; Denies dizziness, dyspnea, nausea or tachypnea Respiratory/Chest Respiratory/Chest: Reports systems reviewed and no addt'l complaints, except as documented; Denies cough, dyspnea, shortness of breath at rest or tachypnea Gastrointestinal Gastrointestinal: Reports systems reviewed and no addt'l complaints, except as documented; Denies abdominal pain, constipation or nausea Genitourinary Genitourinary: Reports systems reviewed and no addt'l complaints, except as documented; Denies burning urination, difficulty urinating, dysuria, urinary frequency or urinary incontinence Musculoskeletal Musculoskeletal: Reports systems reviewed and no addt'l complaints, except as documented Integumentary Integumentary: Reports systems reviewed and no addt'l complaints, except as documented Neurologic Neurologic: Reports systems reviewed and no addt'l complaints, except as documented; Denies abnormal speech, dizziness or headache(s) Psychiatric Psychiatric: Reports systems reviewed and no addt'l complaints, except as documented Endocrine Endocrinology: Reports systems reviewed and no addt'l complaints, except as documented Hematologic/Lymphatic Hematologic/Lymphatic: Reports systems reviewed and no addt'l complaints, except as documented Physical Exam Const alert, oriented x3 and no apparent distress Neck full ROM Resp normal respiratory effort, normal air movement and no retractions Effort and Inspection: able to speak in complete sentences and symmetric chest movement GI soft to palpation Inspection: incision healing well Bladder / Kidney Exam: bladder normal to palpation Uterus Palpation: uterus fundus firm Extremity normal to inspection and full ROM Psych mental status grossly normal, thought process normal and cooperative Assessment & Plan (1) [facility]: [facility] Erend[facility] SR[facility] PLAN: s/p LTCS PPD # 1 1. routine post care 2. breast feeding- support given 3. rh positive 4. rubella immune 5. discharge home (2) SROM (spontaneous rupture of membranes): (3) History of : COMMENT: X2, RLTCS BS scheduled for 12/12 @ 7:15 with (4) Abnormal ultrasound: COMMENT: RESOLVED. 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 may be genetic. repeat imaging improved. skeletal dysplasia unlikely. (5) : QUALIFIERS: Weeks of gestation: 37 weeks Qualified Code(s): Z 3A.37 - 37 weeks gestation of COMMENT: gbs neg, nipt LR and carrier declined. afp negative (6) Anxiety: COMMENT: related to losses, taking buspar & wellbutrin; stable (7) Supervision of high-risk : QUALIFIERS: Trimester: third trimester Qualified Code(s): O09.93 - Supervision of high risk , unspecified, third trimester COMMENT: PRR , RICK 12/18/24,gir Jose Angel Arroyo & Shady(Identical Twins), [place]. (8) conceived through in vitro fertilization: QUALIFIERS: Trimester: third trimester Qualified Code(s): O09.813 - Supervision of resulting from assisted reproductive technology, third trimester COMMENT: genetic testing done at [facility]-girl echo at 22 weeks/nl, growths q 4 weeks, weekly NST at 36 weeks, deliver at 39 weeks (9) History of recurrent miscarriages: Charges/Coding Multi Select Codes Urinary/Genital Urinary/Genital CPT Codes: No Charge
--- NOTE | 2024-12-08 08:15 | PCM.DC.SUM ---
Providers Date of Admission: 12/06/24 Date of Discharge: 12/08/24 Primary Care Physician: Dr. Nery Valiente DO Reason For Visit: SCHEDULED SECTION Diagnosis Discharge Diagnosis (1) delivery delivered: Status: Acute Code(s): O82 - Encounter for delivery without indication Plan: s/p LTCS PPD # 1 1. routine post care 2. breast feeding- support given 3. rh positive 4. rubella immune 5. discharge home (2) SROM (spontaneous rupture of membranes): Status: Acute (3) History of : Status: Acute Code(s): Z98.891 - History of uterine scar from previous surgery (4) Abnormal ultrasound: Status: Acute Code(s): O28.3 - Abnormal ultrasonic finding on screening of mother (5) : Status: Acute Code(s): Z34.90 - Encounter for supervision of normal , unspecified, unspecified trimester Qualifiers: Weeks of gestation: 37 weeks Qualified Code(s): Z3A.37 - 37 weeks gestation of (6) Anxiety: Status: Acute Code(s): F41.9 - Anxiety disorder, unspecified (7) Supervision of high-risk : Status: Acute Code(s): O09.90 - Supervision of high risk , unspecified, unspecified trimester Qualifiers: Trimester: third trimester Qualified Code(s): O09.93 - Supervision of high risk , unspecified, third trimester (8) conceived through in vitro fertilization: Status: Acute Code(s): O09.819 - Supervision of resulting from assisted reproductive technology, unspecified trimester Qualifiers: Trimester: third trimester Qualified Code(s): O09.813 - Supervision of resulting from assisted reproductive technology, third trimester (9) History of recurrent miscarriages: Status: Acute Code(s): N96 - Recurrent loss Medications at Discharge Home Medications bupropion HCl 100 mg tablet (Wellbutrin) 125 mg PO BID anxiety 10/25/16 Buspar 10 mg PO TID anxiety 06/14/17 vits,calcium no.78-iron fumarate-folic acid 29 mg-1 mg tablet (Prenatabs FA) 1 tab PO DAILY vitamin 02/14/19 famotidine 20 mg tablet (Pepcid) 20 mg PO DAILY #30 tabs 07/02/24 naproxen 500 mg tablet 500 mg PO BID PRN PRN Pain #30 tabs 12/06/24 oxycodone-acetaminophen 5 mg-325 mg tablet (Percocet) 1 tab PO Q4H PRN pain 7 days #20 tabs 12/06/24 Hospital Course Operations section Procedures None Summary of Care Provided Minutes Spent on Discharge: 30 Physical Exam Const alert, oriented x3 and no apparent distress Neck full ROM Resp normal respiratory effort, normal air movement and no retractions Effort and Inspection: able to speak in complete sentences and symmetric chest movement GI soft to palpation Inspection: incision intact Bladder / Kidney Exam: bladder normal to palpation Uterus Palpation: uterus fundus Extremity normal to inspection and full ROM Psych mental status grossly normal, thought process normal and cooperative Weight / BMI Weight Weight: 178 lb Body Mass Index (BMI) 29.6 ABG / Lab / Microbiology Data 12/08/24 05:35 12/06/24 23:05 Laboratory: Laboratory Results - last 24 hr 12/08/24 05:35: WBC 7.9, RBC 3.17 L, Hgb 9.6 L, Hct 29.1 L, MCV 91.8, MCH 30.3, MCHC 33.0, RDW Std Deviation 47.4 H, RDW Coeff of Chelle 14.1, Plt Count 226, MPV 10.2 Microbiology: Microbiology 12/06/24 22:05 Urine, Clean Catch Chlamydia/Neisseria (PCR) - Final D/C Instructions Discharge Diet: No restrictions May shower in (days): 0 May resume sexual activity in: 4-6 weeks Weight Bearing Status: Full weight bearing Call your doctor if your incision/area has: Continuous Slow Oozing, Sudden Increased Bleeding, Increased Pain/ Swelling, Increased Redness and Foul Smelling Discharge Call your doctor if you observe: Fever of 101 or Higher and Using more than 1 pad per hour (for 2 hours) Suture Line Care: Avoid Pulling/Pushing and Avoid Pinching/Bending Remove Dressing in: 1 week Cleanse incision/area with: Soap & Water and Keep Dressing Clean & Dry DC O2, CPAP, BIPAP Needs Home O2 Discharge instructions: No DC home with Oxygen: No Please Follow Up With: Matilde Dominguez MD When: Call [phone] to make an appointment for an incision check in 1-2 weeks. Meaningful Use Info Meaningful Use Meaningful Use Diagnoses (Choose all that apply): None applicable Ischemic Stroke Statin Dosing Therapy Reference: STATIN DOSE THERAPY REFERENCE: * Patients > 75 years receive moderate or high dose statin therapy. * Patients 75 years or YOUNGER should receive HIGH intensity statin dose unless contraindicated. You will be required to document reason for non-treatment if statin daily dose does not meet guidelines. HIGH DOSE STATIN THERAPY DAILY Atorvastatin > than or = to 40 mg Rosuvastatin > than or = to 20 mg Amlodipine + Atorvastatin > than or = to 2.5/40 mg Ezetimibe + Simvastatin 10/80 mg Simvastatin 80mg Discharge Plan Admission Admit Date/Time: 12/06/24 22:50 Attending Provider: Matilde Dominguez Primary Care Provider: Nery Valiente Discharge Orders/Prescriptions Prescriptions: New oxycodone-acetaminophen [Percocet] 5-325 mg tablet 1 tab PO Q4H PRN (Reason: pain) 7 Days Qty: 20 0RF naproxen 500 mg tablet 500 mg PO BID PRN PRN (Reason: Pain) Qty: 30 1RF Continued famotidine [Pepcid] 20 mg tablet 20 mg PO DAILY Qty: 30 6RF bupropion HCl [Wellbutrin] 100 mg tablet 125 mg PO BID Patient Comments: by mouth Buspar 10 mg PO TID No Action Prenatabs FA 1 TABLET tablet 1 tab PO DAILY Referrals / Follow Up: Nery Valiente DO [Primary Care Provider] - Disposition Disposition (needs filled in before D/C Order can be placed): Home, Self Care Charges/Coding Multi Select Codes Urinary/Genital Urinary/Genital CPT Codes: No Charge
[2024-12-08] MEDS: Senna/Docusate Sodium 1 Tablet PO (08:27)
[2024-12-08] MEDS: buPROPion (SR) 150 MG Tablet.SA PO (08:28)
[2024-12-08] MEDS: Famotidine 20 MG Tablet PO (08:28)
[2024-12-08] MEDS: busPIRone 5 MG Tablet 10 MG PO (09:33)
--- NOTE | 2024-12-08 09:55 | CASEMGMT ---
Social Work Assessment Labor and Delivery Unit Patient Address: [facility] [address], [place] [address] Phone number: [phone] Date of Referral: 12/07/24 Time of Referral:? 1308 Referred By: Deborah Minor Date of Intervention: ?12/08/24? Time of Intervention:? 914 Reason for Referral:? mental health Sw completed chart review and acknowledges social work consult due to maternal mental health history. Sw presented to bedside and introduced self to mother of baby (LAURA- Candice) and father of baby (FOB- Armani). Sw explained reason for sw involvement and completed psychosocial assessment. History obtained from: medical records, MOB and FOB Household composition: Currently residing in the family home is LAURA, JUSTIN, their three older children: Marixa Carter (7), Jose Angel and Shady (5) and baby to be included in residence when ready for discharge. No concerns with housing, parents report it to be safe and secure. Patient's parent/guardian status:? ?Parents are , they have been together since they were in college together. baby is fourth baby for parents together. No concerns reported regarding domestic violence or intimate partner violence. Medical History: ?LAURA is 34 year old female who is 6, para 3- now 4 following labor and delivery of . LAURA received routine care during with [facility]. LAURA presented to hospital following spontaneous rupture of membranes and delivered baby via repeat on 12/07/24. Baby girl, named Erendira Ellis, was born weighing 5lb 16oz and had apgars of 8 and 9 at one and five minutes of life, respectfully. MOB states that she is breast feeding and baby will be followed by Dr. Hunter for pediatrics. Educational Status:? Both parents graduated from high school and have college degrees. NO problems with reading, learning or comprehension. Financial Status: FORamon is gainfully employed outside of the home working for [employer]- he gets one week off of work now that baby is here. MOB is a stay at home mom. Supplies: All necessary baby supplies obtained, including: car seat, safe sleep space, clothes, diapers and wipes. Childcare/Caregiver(s):? MOB will be the primary caregiver to baby along with FOB when not at work. Transportation:?Both parents have their drivers license and reliable means of transportation. No barriers. Programs/Agencies Involved: ???Parents are not connected to any community agencies that assist them financially. Children Services/Legal Issues:??? No history of children services involvement no issues or concerns warranting referral to be made. Behavioral Health Issues: ??Mental Health History:?JUSTIN denies mental health history. LAURA states that she has been diagnosed with anxiety, and states that she really struggled with it prior to having children. LAURA states that she got connected to a counselor for several years, and found a medication regime that works best for her. LAURA is prescribed Wellbutrin, BuSpar and Vistaril. ?? Substance Use History:??Parents deny substance use prior to and during . Family History:???Parents deny family history of substance use and significant mental health diagnoses. ?? Drug Screens: No drug screens observed in chart review. Family/Social Stressors:? Parents deny any issues, concerns or stressors. Support Systems: LAURA identifies that JUSTIN and her mom are her biggest supports. Depression/Shaken Baby/Safe Sleeping: Sw educated parents on signs and symptoms of baby blues and depression and anxiety. MOB states that she has never struggled following her other deliveries. MOB states that this experience was way different than her other deliveries, because this is the first baby that did not require a NICU admission. MOB states that at this time she is feeling really good mentally and physically. MOB states that she is bonded with baby and feels a significant connection with her. MOB denies feeling anxious, overwhelmed, sad or upset. FOB states that if MOB were to struggle during this period he would be able to recognize that and would know how to help and support her. Sw educated parents on shaken baby prevention and ABCs of safe sleep, parents express understanding. ASSESSMENT:? MOB and baby admitted following labor and delivery of . MOB with mental health history positive for anxiety, she is prescribed medications that she states help her manage her symptoms. MOB states that she also has a counselor that she can talk to any time, but is not someone that she sees regularly. MOB and FOB both observed to have strong connection with one another, and both to be bonded with baby. Both parents were receptive to meeting and talking with shira. MOB made and maintained eye contact and talked openly about her mental health and experiences in the past. Parents have obtained all necessary baby supplies and have natural supports in place. PLAN:?? No other services requested or indicated. MOB and baby to be discharged when medically ready. Parents were provided literature regarding: signs and symptoms of baby blues and mood and anxiety disorders, Help Me Grow, shaken baby prevention, ABCs of safe sleep and a list of [facility] resources that are available for them should any needs present themselves. Lily Lehman, [facility], GLYCERIN OPERATOR
== END 2024-12-08 10:20 | disposition home or self-care (01) | DRG 788 ==
LOC: WPOUT 22:53 → WP 23:47
PROVIDERS: Advanced Practice Midwife; Admitting Provider Obstetrics & Gynecology; PCP Internal Medicine; Referring Provider Obstetrics & Gynecology; Visit Provider Obstetrics & Gynecology
DX: O34.211 Maternal care for low transverse scar from previous cesarean delivery (principal); O26.23 Pregnancy care for patient with recurrent pregnancy loss, third trimester; F41.8 Other specified anxiety disorders; Z37.0 Single live birth; Z3A.37 37 weeks gestation of pregnancy; O99.344 Other mental disorders complicating childbirth; O42.92 Full-term premature rupture of membranes, unspecified as to length of time between rupture and onset of labor; Z79.899 Other long term (current) drug therapy; Z87.59 Personal history of other complications of pregnancy, childbirth and the puerperium
CPT/HCPCS: 59025; 59050; 82565; 82570; 84112; 84156; 84450; 84460; 84550; 85025; 85027; 86780; 86850; 86900; 86901; 87491; 87591; 99221; A4216; G0378; J2405